=== PATIENT | male | born 1970 | race Caucasian/White ===

== ENCOUNTER 2019-03-23 09:42 | Emergency (ER) | payer OTHER, SELFPAY ==
[2019-03-23 09:44] VITALS: BP 123/88; PULSE 69; RESP 17; TEMP 37.6; O2SAT 95; BMI 28.7
--- NOTE | 2019-03-23 09:53 | CT_ITS ---
STUDY: CT SOFT TISSUE NECK WITH CONTRAST REASON FOR EXAM: Male, 48 years old. PT STATED RT SIDE LUMP ON NECK X 3 MONTHS. RADIATION DOSAGE (If Supplied By Facility): CTDIvol = ( 19.37 ) mGy, DLP = ( 604.59 ) mGycm TECHNIQUE: The patient was scanned in a multi-detector CT scanner. High resolution transaxial imaging was performed following intravenous administration of IV 75mL Isovue-300. Sagittal and coronal images were reconstructed. Individualized dose optimization techniques were used for this CT. COMPARISON: None. FINDINGS: Normal bilateral parotid glands. Normal bilateral middle stitcher spaces. Normal bilateral parapharyngeal spaces. Normal bilateral carotid spaces. Normal bilateral sublingual and submandibular glands and spaces. Normal visualized nasopharynx. Normal retropharyngeal space. Normal perivertebral space. Normal visualized bilateral faucial tonsils. The visualized tongue, tongue base and oropharynx are normal. The visualized cervical lymph nodes (levels I-) are within normal size limits, and maintain normal morphology. There is no demonstrated solid or cystic mass lesion. There is no abnormal contrast enhancement. Normal epiglottis, bilateral vallecula and hypopharynx. The pre-epiglottic and paraglottic adipose spaces are normal. Normal visualized bilateral piriform sinuses, aryepiglottic folds, vocal cords, and arytenoid-cricoid articulations. Normal subglottic trachea. Normal bilateral lobes of the thyroid gland. Normal visualized pulmonary apices. Normal visualized paranasal sinuses. Disc space narrowing and spondylosis at the C5-C6 and C6-C7 levels. CT/Soft Tissue Neck WITH Contrast IMPRESSION: Normal enhanced CT examination of the soft tissues of the neck. Electronically Signed: Vick Ashley, at 11:07 EST , Service support ,
--- NOTE | 2019-03-23 09:54 | ED.DCSUM_ITS ---
History of Present Illness Chief Complaint: Abscess Detail of Chief Complaint: Lump on right neck Informant: Patient, Significant Other Onset: Month(s) Context: Gradual Onset Current Severity: Moderate Maximum Severity: Moderate Narrative: Patient presents with a painful lump to the right side of his neck for approximately last 3 months. He states he first noticed it when he was being treated for a sinus infection. It has not changed in size. Continue to be painful. He is currently in his second round of antibiotics for sinusitis. He denies having fever or night sweats. He denies having any other masses or palpable lumps. - Past Medical History (1) HTN (hypertension) Status: Chronic (2) Hx of prior ablation treatment Status: Chronic Past Medical History - Allergies and Home Meds Allergies/Adverse Reactions: Allergies No Known Allergies Allergy (Verified 03/23/19 09:43) Primary Care Physician: Ranjeet Lainez,Out of [NON-STAFF] - Prior records reviewed: Yes Surgical History: ablation Lives: Spouse/ Significant Other Smoking Status: Never smoker Review of Systems General: Denies: Chills, Fever Eyes: Denies: Visual changes - bilaterally ENT: Reports: -. Denies: Bilateral ear pain Cardiovascular: Denies: Chest pain Respiratory: Denies: Dyspnea, Cough Gastrointestinal: Denies: Abdominal pain, Vomiting, Diarrhea Musculoskeletal: Denies: Myalgias, Arthralgias Skin: Denies: Rash Neurological: Denies: Headache Hematologic: Denies: Easy bruising, Easy bleeding Allergy: Denies: Uticaria Physical Exam Vital Signs/Narrative: Vital Signs Temp Pulse Resp BP Pulse Ox 03/23/19 09:44 99.6 F H 69 17 123/88 H 95 Inital Vital Signs reviewed: Yes General: Well nourished, Well developed Head: Normocephalic ENT: Moist mucous membranes Neck: Supple, - - Mild tenderness along the sternocleidomastoid muscle on the right. Small palpable lump noted. No overlying erythema or skin warmth. No significant edema. Cardiovascular: Regular rate, Regular rhythm Respiratory: No distress, CTA bilaterally Abdomen: Soft, Nontender Skin: Normal color Neurological: Alert, Oriented x3 Psychological: Normal affect Diagnostic/Tx/Re-eval Impressions Soft Tissue Neck CT 03/23/19 09:53 IMPRESSION: Normal enhanced CT examination of the soft tissues of the neck. Electronically Signed: Vick Ashley, at 11:07 EST , Service support , 03/23/19 09:53 CT Neck [Soft Tissue Neck WITH Contrast] [CT] Stat Laboratory Results 03/23/19 03/23/19 10:05 10:05 WBC 5.6 RBC 4.93 Hgb 15.3 Hct 45.8 MCV 92.9 MCH 31.0 MCHC 33.4 RDW Std Deviation 43.0 RDW Coeff of Evaristo 12.5 Plt Count 237 MPV 8.4 Immature Gran % (Auto) 0.400 Neut % (Auto) 50.3 Lymph % (Auto) 33.1 [place] % (Auto) 8.9 Eos % (Auto) 6.8 H Baso % (Auto) 0.5 Absolute Neuts (auto) 2.8 Absolute Lymphs (auto) 1.85 Nucleated RBC % 0 Sodium 136 Potassium 4.4 Chloride 103 Carbon Dioxide 28.0 Anion Gap 5 BUN 16 Creatinine 1.26 Estim Creat Clear Calc 76.36 Est GFR (MDRD) Af Amer 78 Est GFR (MDRD) Non-Af 65 BUN/Creatinine Ratio 12.7 Glucose 110 H Calcium 9.6 TSH 1.44 - Medical Decision Making Results are discussed with patient and at bedside. At this time no acute abnormalities are noted. He will continue the antibiotic he is currently on. He will be referred to ENT for further follow-up as needed. ED Disposition - Plan for ED Patient: Disposition: Home or Assisted Living Diagnosis: Lymphadenopathy Referrals: [facility] Doctor,Out of [NON-STAFF] - Douglas Palencia MD [STAFF PHYSICIAN] - As Needed Additional Instructions: Your bloodwork today was unremarkable. Your CT scan revealed the lymph nodes to be of normal size with no suspicious masses. Continue your current antibiotic and follow up with ENT as needed.
[2019-03-23 10:11] LABS: Absolute Lymphocyte Count 1.85 X10^3/uL (0.83-4.51); Absolute Neutrophil Count 2.8 X10^3/uL (2.0-7.7); Basophil# 0.03 X10^3/uL; Basophil% 0.5 % (0-1); Eosinophil# 0.38 X10^3/uL; Eosinophils% 6.8 % (0-5); Hematocrit 45.8 % (40-54); Hemoglobin 15.3 g/dL (13.0-16.5); Lymphocyte # 1.85 X10^3/ul (4.0); Lymphocyte % 33.1 % (19-41); Mean Corp Hgb Conc 33.4 g/dL (32-36); Mean Corpuscular Volume 92.9 fL (80-94); Mean Platelet Vol. 8.4 fl (6.2-12.0); Monocyte% 8.9 % (0-10); NRBC Flagged by Analyzer 0 % (0-5); Neutrophil # 2.81 X10^3/uL (2.7-7.7); Neutrophil % 50.3 % (47-70); Platelet Count 237 K/mm3 (150-450); RBC Distribution Width CV 12.5 % (11.6-14.6); Red Blood Count 4.93 M/mm3 (4.6-6.2); White Blood Count 5.6 K/mm3 (4.4-11.0)
[2019-03-23 10:39] LABS: Anion Gap 5 (5-15); BUN 16 mg/dL (7-18); BUN/Creat Ratio 12.7 RATIO (10-20); Calcium,Total 9.6 mg/dL (8.5-10.1); Chloride 103 mmol/L (98-107); Creatinine, Serum 1.26 mg/dL (0.70-1.30); EST Glomerular Filtration Rate 65 mL/min (>60); Est Glom Filt Rate - Afr Amer 78 mL/min (>60); Estimated Creatinine Clearance 76.36 ml/min; Glucose 110 mg/dL (74-106); Potassium 4.4 mmol/L (3.5-5.1); Sodium Level 136 mmol/L (136-145); Thyroid Stim Hormone (TSH) 1.44 uIU/mL (0.358-3.74)
== END 2019-03-23 11:41 | disposition home or self-care (01) ==
PROVIDERS: Emergency Provider Emergency Medicine
DX: R59.0 Localized enlarged lymph nodes (principal); I10 Essential (primary) hypertension
CPT/HCPCS: 70491; 80048; 84443; 85025; 99283; Q9967; A4216

== ENCOUNTER 2021-03-24 09:57 | Emergency (ER) | payer OTHER, SELFPAY ==
[2021-03-24 09:57] VITALS: BP 167/93; PULSE 72; RESP 16; TEMP 37.3; O2SAT 97; BMI 27.9
[2021-03-24 10:17] VITALS: BP 159/93; PULSE 69; PULSE 74; RESP 18; TEMP 37.3; O2SAT 92; O2SAT 94; O2SAT 95
--- NOTE | 2021-03-24 10:25 | CT_ITS ---
STUDY: CTA CHEST REASON FOR EXAM: Male, 50 years old. covid 19 pulmonary embolism RADIATION DOSAGE (If Supplied By Facility): CTDIvol = ( 11.79 ) mGy, DLP = ( 518.92 ) mGycm TECHNIQUE: The examination was performed with the intravenous administration of IV 100mL Isovue-370. Post-processing of the angiographic images was performed, with multiplanar reformation and 3D reconstruction. Individualized dose optimization techniques were used for this CT. COMPARISON: None. FINDINGS: Normal enhancement of the main pulmonary artery and right and left pulmonary arteries. Normal enhancement of the bilateral peripheral pulmonary arteries. There is no demonstrated pulmonary embolism. Normal thoracic aorta and visualized great vessels. There is no demonstrated aortic dissection. There are calcifications of the coronary arteries. There are visualized mediastinal lymph nodes, which are within normal size limits, and with normal morphology. Normal hilar regions. Normal visualized trachea and bronchi. The lungs are well expanded. Patchy focal pulmonary infiltrates involving both upper and lower lobes in a preferential peripheral distribution. Findings are suggestive of Covid pneumonitis. Normal pleura. Normal chest wall structures. Normal osseous structures. Normal visualized upper abdomen. CT/CTA Chest W/WO Contrast IMPRESSION: Multiple pulmonary infiltrates in the preferential peripheral distribution suggestive of a pneumonitis associated with Covid. Electronically Signed: Vick Ashley MD at 11:46 EST , Service support ,
--- NOTE | 2021-03-24 10:26 | EKG12_ITS ---
Test Reason : SOB Blood Pressure : / mmHG Vent. Rate : 061 BPM Atrial Rate : 061 BPM P-R Int : 154 ms QRS Dur : 088 ms QT Int : 384 ms P-R-T Axes : 017 008 019 degrees QTc Int : 386 ms Normal sinus rhythm Normal ECG Confirmed by AMINAH YU, GLENN ([id number]), social media editor KINZA TRUONG ([id number]) on 03/25/2021 9:55:44 AM Referred By: Confirmed By:GLENN BURR MD
--- NOTE | 2021-03-24 10:26 | ED.VIS.DYS ---
HPI History of Present Illness Chief Complaint: Shortness of Breath Informant: patient and spouse/S.O. Narrative Narrative: 50-year-old male arriving to the emergency room on day 14 of COVID-19 with chest pain. Patient states that he has been recovering from COVID-19 but the thing that keeps persisting is his cough and when he goes to take a deep breath now he notes a sharp pain on the left side of his chest. He notes fevers diarrhea have resolved. Cough is nonproductive. No prior history of DVT PE. PFSH PFS Medical History (Updated 03/24/21 @ 12:[address] Stephen Tobar DO) COVID-19 HTN (hypertension) Home Medications dexamethasone 6 mg PO DAILY #7 tab 03/24/21 [Rx Last Taken Unknown] Allergy/AdvReac Type Severity Reaction Status Date / Time No Known Allergies Allergy Verified 03/24/21 10:00 Surgical History Hx of prior ablation treatment Social History (Updated 03/24/21 @ 10:[address] Stephen Tobar DO) Smoking Status: Never smoker substance use type: does not use ROS ROS ED Constitutional Constitutional ED: Denies chills, fever(s) or weight loss Eyes Eyes: Denies change in vision or diplopia ENT ENT ED: Denies ear pain, rhinorrhea or sore throat Cardiovascular Cardiovascular: Reports chest pain; Denies orthopnea, palpitations or racing heartbeat Respiratory/Chest Respiratory/Chest: Reports cough; Denies dyspnea, dyspnea on exertion or orthopnea Gastrointestinal Gastrointestinal: Denies abdominal pain, diarrhea, nausea or vomiting Genitourinary Genitourinary ED: Denies dysuria, hematuria or urinary frequency Musculoskeletal Musculoskeletal: Denies arthralgias or myalgias Integumentary Denies abscess or rash Neurologic Neurologic: Denies headache(s) or weakness Psychiatric Psychiatric: Denies anxiety, depression, suicidal ideation or suicidal thoughts Endocrine Endocrinology: Denies polydipsia, polyphagia or polyuria Allergic/Immunologic Allergic/Immunologic ED: Denies mouth swelling, tongue swelling or urticaria EXAM Physical Exam Const Vital Signs: 03/24/21 09:57 03/24/21 10:17 03/24/21 12:00 Temperature 99.1 F 99.1 F 99.2 F H Temperature Source Oral Oral Temporal Pulse Rate 72 74 60 Respiratory Rate 16 18 20 H Respiratory Effort Normal Respiratory Depth Normal Blood Pressure 167/93 H 159/93 H 126/80 H Blood Pressure Mean 117 115 95 Pulse Ox 97 95 93 Oxygen Delivery Method Room Air Room Air Room Air 03/24/21 12:22 Temperature Temperature Source Pulse Rate 56 L Respiratory Rate 19 H Respiratory Effort Respiratory Depth Blood Pressure 131/73 H Blood Pressure Mean Pulse Ox 93 Oxygen Delivery Method Positive well nourished and well developed General Appearance ED: well developed HEENT Reports normocephalic, head/scalp atraumatic, TM's clear and moist mucous membranes atraumatic Tympanic Membrane ED: Yes TM's clear Eyes PERRL and EOMs intact bilaterally Neck no lymphadenopathy, supple and no JVD Resp normal respiratory effort and clear to auscultation bilaterally Cardio regular rate, regular rhythm and no murmurs GI normal to inspection, nondistended, normoactive bowel sounds and non-tender Palpation: soft Back/Spine no CVA tenderness and normal ROM Extremity normal to inspection General Extremety ED: Negative for edema General Extremity: Negative for edema Neuro oriented x3 and CN's II-XII intact bilaterally Sensorium / Orientation: alert Motor Exam: strength 5/5 throughout Psych mental status grossly normal Mood & Affect: Negative for depressed or tearful Skin no rashes or lesions noted and no wounds MDM MDM MDM Narrative Medical decision making narrative: Basic blood work was reassuring and showed a troponin level of 4. CTA of the chest demonstrates diffuse pneumonitis but no pulmonary embolism. I will write for some Decadron as the patient took some prednisone which did actually help his symptoms. Patient return if worsening or concerns Lab Data Attestation: I reviewed the patient's lab results. Labs: Laboratory Results - last 24 hr 03/24/21 03/24/21 10:30 10:30 WBC 6.4 RBC 4.71 Hgb 14.5 Hct 42.0 MCV 89.2 MCH 30.8 MCHC 34.5 RDW Std Deviation 39.5 RDW Coeff of Evaristo 12.0 Plt Count 274 MPV 8.9 Immature Gran % (Auto) 0.600 Neut % (Auto) 65.8 Lymph % (Auto) 22.7 [place] % (Auto) 10.4 H Eos % (Auto) 0.3 Baso % (Auto) 0.2 Absolute Neuts (auto) 4.2 Absolute Lymphs (auto) 1.46 Nucleated RBC % 0 Sodium 137 Potassium 3.7 Chloride 102 Carbon Dioxide 27.0 Anion Gap 8 BUN 11 Creatinine 1.06 Estim Creat Clear Calc 86.08 Est GFR (MDRD) Af Amer 95 Est GFR (MDRD) Non-Af 78 BUN/Creatinine Ratio 10.4 Glucose 161 H Calcium 9.4 Total Bilirubin 0.30 AST 23 ALT 34 Alkaline Phosphatase 65 Troponin I High Sens 4 Total Protein 7.9 Albumin 3.4 Globulin 4.5 H Albumin/Globulin Ratio 0.8 L Radiography Diagnostic Testing: Clinical Impression(s) from Imaging Studies Chest CTA 03/24/21 10:25 IMPRESSION: Multiple pulmonary infiltrates in the preferential peripheral distribution suggestive of a pneumonitis associated with Covid. Electronically Signed: Vick Ashley MD at 11:46 EST , Service support , EKG Initial EKG: Attestation: I personally reviewed and interpreted this EKG as follows: Comments: Normal sinus rhythm with a ventricular rate of 61 bpm Discharge Plan Triage Chief Complaint: Shortness of Breath ED Provider: Stephen Tobar Dx/Rx/DC Orders Clinical Impression: COVID-19, Chest pain Instructions: Coronavirus Disease 2019 (COVID-19): Caring for Yourself or Others, ED Pleurisy Prescriptions: New dexamethasone 6 MG tablet 6 mg PO DAILY Qty: 7 RF: 0 Primary Care Provider: Carol Washburn Referrals: Carol Washburn MD [Primary Care Provider] - As Needed Disposition Disposition: Home, Self Care
[2021-03-24 10:50] LABS: Absolute Lymphocyte Count 1.46 X10^3/uL (0.83-4.51); Absolute Neutrophil Count 4.2 X10^3/uL (2.0-7.7); Basophil# 0.01 X10^3/uL; Basophil% 0.2 % (0-1); Eosinophil# 0.02 X10^3/uL; Eosinophils% 0.3 % (0-5); Hemoglobin 14.5 g/dL (13.0-16.5); Lymphocyte # 1.46 X10^3/ul (0.83-4.51); Lymphocyte % 22.7 % (19-41); Mean Corp Hgb Conc 34.5 g/dL (32-36); Mean Corpuscular Hgb 30.8 pg (27.0-32.0); Mean Corpuscular Volume 89.2 fL (80-94); Mean Platelet Vol. 8.9 fl (6.2-12.0); Monocyte# 0.67 X10^3/uL; Monocyte% 10.4 % (0-10); NRBC Flagged by Analyzer 0 % (0-5); Neutrophil # 4.24 X10^3/uL (2.7-7.7); Neutrophil % 65.8 % (47-70); Platelet Count 274 K/mm3 (150-450); RBC Distribution Width SD 39.5 fl (35.1-43.9); Red Blood Count 4.71 M/mm3 (4.6-6.2); White Blood Count 6.4 K/mm3 (4.4-11.0)
[2021-03-24 11:03] LABS: ALB/GLOB Ratio 0.8 RATIO (0.9-2.4); AST(SGOT) 23 U/L (15-37); Alanine Aminotransfer ALT/SGPT 34 U/L (16-61); Albumin, Serum 3.4 g/dL (3.2-5.0); Alkaline Phosphatase 65 U/L (45-117); Anion Gap 8 (5-15); BUN 11 mg/dL (7-18); BUN/Creat Ratio 10.4 RATIO (10-20); Calcium,Total 9.4 mg/dL (8.5-10.1); Chloride 102 mmol/L (98-107); Creatinine, Serum 1.06 mg/dL (0.70-1.30); EST Glomerular Filtration Rate 78 mL/min (>60); Est Glom Filt Rate - Afr Amer 95 mL/min (>60); Estimated Creatinine Clearance 86.08 ml/min; Globulin 4.5 g/dL (2.2-4.2); Glucose 161 mg/dL (74-106); Potassium 3.7 mmol/L (3.5-5.1); Protein, Total 7.9 g/dL (6.4-8.2); Sodium Level 137 mmol/L (136-145); Troponin-I HS 4 pg/mL (3.0-78.0)
[2021-03-24 12:00] VITALS: BP 126/80; PULSE 60; RESP 19; RESP 20; TEMP 37.3; O2SAT 93; O2SAT 94
[2021-03-24 12:22] VITALS: BP 131/73; PULSE 56; RESP 19; O2SAT 93
== END 2021-03-24 12:35 | disposition home or self-care (01) ==
PROVIDERS: Emergency Provider Emergency Medicine; PCP Internal Medicine; Visit Provider Emergency Medicine
DX: U07.1 COVID-19 (principal); R07.9 Chest pain, unspecified
CPT/HCPCS: 71275; 80053; 84484; 85025; 93005; 99283; Q9967; A4216

== ENCOUNTER 2021-03-31 07:01 | Emergency (ER) | payer OTHER, SELFPAY ==
[2021-03-31 07:02] VITALS: BP 149/93; PULSE 69; RESP 18; TEMP 36.4; O2SAT 97; BMI 28.7
--- NOTE | 2021-03-31 07:17 | CT_ITS ---
STUDY: CT SOFT TISSUE NECK WITH CONTRAST REASON FOR EXAM: Male, 51 years old. Dysphagia RADIATION DOSAGE (If Supplied By Facility): CTDIvol = ( 16.72 ) mGy, DLP = ( 526.32 ) mGycm TECHNIQUE: The patient was scanned in a multi-detector CT scanner. High resolution transaxial imaging was performed following intravenous administration of IV 75mL Isovue-300. Sagittal and coronal images were reconstructed. Individualized dose optimization techniques were used for this CT. COMPARISON: CT of the neck dated 03/23/19 FINDINGS: There are mild patchy groundglass opacities in the lung apices. This is improved when compared with the chest CT dated 03/24/21 The thyroid is normal in contour and density. There are no focal thyroid lesions. There is no cervical lymphadenopathy. There is no soft tissue mass or fluid collection. The bilateral parotid and submandibular glands are within normal limits. The visualized intracranial structures are grossly unremarkable. The mastoid air cells and visualized paranasal sinuses are clear. There are no destructive osseous lesions. CT/Soft Tissue Neck WITH Contrast IMPRESSION: Mild patchy groundglass opacities in the lung apices which are improved when compared with the chest CT dated 03/24/21. Unremarkable CT of the soft tissues of the neck. Electronically Signed: Ron Aponte MD at 8:34 EST ,
--- NOTE | 2021-03-31 07:18 | EX.ED.DYSGE1 ---
HPI History of Present Illness Chief Complaint: General Illness Informant: patient Narrative Narrative: 51-year-old male presenting to the emergency department with a lump in his throat. Patient states that he has had this before and about [address] scan. He states that he followed up with an ENT who told him there was nothing to be concerned about. He states that while he was on dexamethasone for Covid it had improved but since stopping it it is coming back more. He notes it is affecting his swallowing. He notes most things taste bland and he does have dry mouth. He is a non-smoker does not use much alcohol. No fevers. No hemoptysis. PFSH PFS Medical History COVID-19 HTN (hypertension) Home Medications NK 03/31/21 [History Last Taken Unknown] Allergy/AdvReac Type Severity Reaction Status Date / Time No Known Allergies Allergy Verified 03/31/21 07:04 Surgical History Hx of prior ablation treatment Social History Smoking Status: Never smoker substance use type: does not use ROS ROS ED Constitutional Constitutional ED: Denies chills or weight loss Eyes Eyes: Denies change in vision or diplopia ENT ENT ED: Reports other Details: Change in swallowing. lump in throat ; Denies ear pain, rhinorrhea or sore throat Cardiovascular Cardiovascular: Denies chest pain, orthopnea, palpitations or racing heartbeat Respiratory/Chest Respiratory/Chest: Denies cough, dyspnea or orthopnea Gastrointestinal Gastrointestinal: Denies abdominal pain, diarrhea, nausea or vomiting Genitourinary Genitourinary ED: Denies dysuria, hematuria or urinary frequency Musculoskeletal Musculoskeletal: Denies arthralgias or myalgias Integumentary Denies abscess or rash Neurologic Neurologic: Denies headache(s) or weakness Psychiatric Psychiatric: Denies anxiety, depression, suicidal ideation or suicidal thoughts Endocrine Endocrinology: Denies polydipsia, polyphagia or polyuria Allergic/Immunologic Allergic/Immunologic ED: Denies mouth swelling, tongue swelling or urticaria EXAM Physical Exam Const Vital Signs: 03/31/21 07:02 Temperature 97.5 F L Temperature Source Temporal Pulse Rate 69 Respiratory Rate 18 Blood Pressure 149/93 H Blood Pressure Mean 111 Pulse Ox 97 Oxygen Delivery Method Room Air Positive well nourished and well developed General Appearance ED: well developed HEENT Reports normocephalic, head/scalp atraumatic, TM's clear and moist mucous membranes HEENT Narrative: Visualized tongue lips and floor mouth appear normal. Normal oral mucosa. Negative for trauma Tympanic Membrane ED: Yes TM's clear Eyes PERRL and EOMs intact bilaterally Neck no lymphadenopathy, supple and no JVD Neck Narrative: The patient points to his sternocleidomastoid muscle near the insertion of the clavicle as where he is feeling this mass. I do not appreciate any pathologic nodes. There is no bruits. Normal carotid upstroke. Resp normal respiratory effort and clear to auscultation bilaterally Cardio regular rate, regular rhythm and no murmurs GI normal to inspection, nondistended, normoactive bowel sounds and non-tender Palpation: soft Back/Spine no CVA tenderness and normal ROM Extremity normal to inspection General Extremety ED: Negative for edema General Extremity: Negative for edema Neuro oriented x3 and CN's II-XII intact bilaterally Sensorium / Orientation: alert Motor Exam: strength 5/5 throughout Psych mental status grossly normal Mood & Affect: Negative for depressed or tearful Skin no rashes or lesions noted and no wounds MDM MDM MDM Narrative Medical decision making narrative: Basic blood work was negative glucose noted to be 130. CT of the soft tissues of the neck with IV contrast was obtained. This did not demonstrate anything that would explain what he is feeling. Patient has a follow-up appointment today with primary care I also recommended that he may want to visit with ENT again. He saw Dr. Palencia in the past. Lab Data Attestation: I reviewed the patient's lab results. Labs: Laboratory Results - last 24 hr 03/31/21 03/31/21 07:35 07:35 WBC 7.5 RBC 4.70 Hgb 14.3 Hct 41.2 MCV 87.7 MCH 30.4 MCHC 34.7 RDW Std Deviation 39.7 RDW Coeff of Evaristo 12.4 Plt Count 429 MPV 8.2 Immature Gran % (Auto) 2.700 H Neut % (Auto) 51.9 Lymph % (Auto) 32.4 [place] % (Auto) 10.2 H Eos % (Auto) 2.5 Baso % (Auto) 0.3 Absolute Neuts (auto) 3.9 Absolute Lymphs (auto) 2.42 Nucleated RBC % 0 Sodium 137 Potassium 3.9 Chloride 105 Carbon Dioxide 27.0 Anion Gap 5 BUN 16 Creatinine 1.04 Estim Creat Clear Calc 86.77 Est GFR (MDRD) Af Amer 97 Est GFR (MDRD) Non-Af 80 BUN/Creatinine Ratio 15.4 Glucose 130 H Calcium 8.8 Total Bilirubin 0.40 AST 18 ALT 50 Alkaline Phosphatase 63 Total Protein 7.2 Albumin 3.3 Globulin 3.9 Albumin/Globulin Ratio 0.8 L Radiography Diagnostic Testing: Clinical Impression(s) from Imaging Studies Soft Tissue Neck CT 03/31/21 07:17 IMPRESSION: Mild patchy groundglass opacities in the lung apices which are improved when compared with the chest CT dated 03/24/21. Unremarkable CT of the soft tissues of the neck. Electronically Signed: Ron Aponte MD at 8:34 EST , Discharge Plan Triage Chief Complaint: General Illness ED Provider: Stephen Tobar Dx/Rx/DC Orders Clinical Impression: Acute neck pain Prescriptions: No Action NK RF: 0 Primary Care Provider: Carol Washburn Referrals: Dung Ibarra MD [STAFF PHYSICIAN] - (for ENT) Douglas Palencia MD [STAFF PHYSICIAN] - Carol Washburn MD [Primary Care Provider] - As soon as possible Disposition Disposition: Home, Self Care
[2021-03-31 07:44] LABS: Absolute Lymphocyte Count 2.42 X10^3/uL (0.83-4.51); Absolute Neutrophil Count 3.9 X10^3/uL (2.0-7.7); Basophil# 0.02 X10^3/uL; Basophil% 0.3 % (0-1); Eosinophil# 0.19 X10^3/uL; Eosinophils% 2.5 % (0-5); Hematocrit 41.2 % (40-54); Hemoglobin 14.3 g/dL (13.0-16.5); Lymphocyte # 2.42 X10^3/ul (0.83-4.51); Lymphocyte % 32.4 % (19-41); Mean Corp Hgb Conc 34.7 g/dL (32-36); Mean Corpuscular Hgb 30.4 pg (27.0-32.0); Mean Corpuscular Volume 87.7 fL (80-94); Mean Platelet Vol. 8.2 fl (6.2-12.0); Monocyte# 0.76 X10^3/uL; Monocyte% 10.2 % (0-10); NRBC Flagged by Analyzer 0 % (0-5); Neutrophil # 3.88 X10^3/uL (2.7-7.7); Neutrophil % 51.9 % (47-70); Platelet Count 429 K/mm3 (150-450); RBC Distribution Width CV 12.4 % (11.6-14.6); RBC Distribution Width SD 39.7 fl (35.1-43.9); White Blood Count 7.5 K/mm3 (4.4-11.0)
[2021-03-31 07:58] LABS: ALB/GLOB Ratio 0.8 RATIO (0.9-2.4); AST(SGOT) 18 U/L (15-37); Alanine Aminotransfer ALT/SGPT 50 U/L (16-61); Albumin, Serum 3.3 g/dL (3.2-5.0); Alkaline Phosphatase 63 U/L (45-117); Anion Gap 5 (5-15); BUN 16 mg/dL (7-18); BUN/Creat Ratio 15.4 RATIO (10-20); Calcium,Total 8.8 mg/dL (8.5-10.1); Chloride 105 mmol/L (98-107); Creatinine, Serum 1.04 mg/dL (0.70-1.30); EST Glomerular Filtration Rate 80 mL/min (>60); Est Glom Filt Rate - Afr Amer 97 mL/min (>60); Estimated Creatinine Clearance 86.77 ml/min; Globulin 3.9 g/dL (2.2-4.2); Glucose 130 mg/dL (74-106); Potassium 3.9 mmol/L (3.5-5.1); Protein, Total 7.2 g/dL (6.4-8.2); Sodium Level 137 mmol/L (136-145)
== END 2021-03-31 09:33 | disposition home or self-care (01) ==
PROVIDERS: Emergency Provider Emergency Medicine; PCP Internal Medicine; Visit Provider Emergency Medicine
DX: M54.2 Cervicalgia (principal); Z86.16 Personal history of COVID-19
CPT/HCPCS: 70491; 80053; 85025; 99283; Q9967; A4216

== ENCOUNTER 2021-05-01 17:13 | Outpatient (CLI) | payer OTHER, SELFPAY ==
--- NOTE | 2021-05-01 17:42 | CT_ITS ---
STUDY: CT Abdomen And Pelvis W/ Contrast Injection 05/01/2021 8:14 PM REASON FOR EXAM: Male, 51 years old. ABDOMINAL PAIN Right lower abdominal pain/fullness TECHNIQUE: Transaxial images were obtained with oral contrast, and with Oral and amp; IV Gastrografin 100mL Isovue-370 intravenous contrast. Individualized dose optimization techniques were used for this CT. COMPARISON: Mar 24 2021 11:17amCTA Chest FINDINGS: The visualized lung bases are unremarkable. The visualized portions of the heart are within normal limits. 12 mm hypodensity of the liver. This is 37 [place] units. ACR White Paper guidelines (Edmond, et al. JACR 2017; 14(11):7013-3640.) suggest no follow-up is necessary. Normal gallbladder and extrahepatic biliary system. Normal spleen. Normal pancreas. Normal bilateral adrenal glands. No acute findings of the right kidney. No acute findings of the left kidney. Normal visualized stomach. Normal small intestine. Stool throughout the colon. The appendix is visualized and appears normal. There are no acute findings of the abdominal aorta. Normal inferior vena cava. Subcentimeter mesenteric lymph nodes. Normal urinary bladder. There is a right inguinal hernia containing fat. There is no bowel involvement. There is no incarceration. There is no findings suggesting that this is causing a bowel obstruction. There is an umbilical hernia containing fat. There are diffuse degenerative changes of the visualized lumbar spine. IMPRESSION: (NOT LISTED IN ORDER OF SIGNIFICANCE) There are no acute findings. Other findings as above. Electronically Signed: Kwame Carreno MD at 20:17 EST , CT/Abdomen/Pelvis WITH Contrast
[2021-05-01 17:44] LABS: Absolute Lymphocyte Count 2.38 X10^3/uL (0.83-4.51); Basophil# 0.03 X10^3/uL; Basophil% 0.5 % (0-1); Eosinophil# 0.36 X10^3/uL; Eosinophils% 5.6 % (0-5); Hemoglobin 14.4 g/dL (13.0-16.5); Lymphocyte # 2.38 X10^3/ul (0.83-4.51); Mean Corp Hgb Conc 34.3 g/dL (32-36); Mean Corpuscular Hgb 31.6 pg (27.0-32.0); Mean Corpuscular Volume 92.1 fL (80-94); Mean Platelet Vol. 8.5 fl (6.2-12.0); Monocyte# 0.65 X10^3/uL; Monocyte% 10.1 % (0-10); NRBC Flagged by Analyzer 0 % (0-5); Neutrophil % 46.5 % (47-70); Platelet Count 295 K/mm3 (150-450); RBC Distribution Width CV 13.4 % (11.6-14.6); RBC Distribution Width SD 45.3 fl (35.1-43.9); Red Blood Count 4.56 M/mm3 (4.6-6.2); White Blood Count 6.4 K/mm3 (4.4-11.0)
[2021-05-01 17:52] LABS: Erythrocyte Sedimentation Rate 2 mm/hr (0-20)
[2021-05-01 18:32] LABS: ALB/GLOB Ratio 1.2 RATIO (0.9-2.4); AST(SGOT) 25 U/L (15-37); Alanine Aminotransfer ALT/SGPT 59 U/L (16-61); Albumin, Serum 4.1 g/dL (3.2-5.0); Alkaline Phosphatase 66 U/L (45-117); Anion Gap 2 (5-15); BUN 16 mg/dL (7-18); BUN/Creat Ratio 13.9 RATIO (10-20); CRP < 2.90 mg/L (0.0-3.0); Calcium,Total 9.7 mg/dL (8.5-10.1); Chloride 106 mmol/L (98-107); Creatinine, Serum 1.15 mg/dL (0.70-1.30); EST Glomerular Filtration Rate 71 mL/min (>60); Est Glom Filt Rate - Afr Amer 86 mL/min (>60); Globulin 3.5 g/dL (2.2-4.2); Glucose 113 mg/dL (74-106); Potassium 4.2 mmol/L (3.5-5.1); Protein, Total 7.6 g/dL (6.4-8.2); Sodium Level 139 mmol/L (136-145)
== END 2021-05-01 23:59 | disposition home or self-care (01) ==
PROVIDERS: PCP Internal Medicine; Visit Provider Internal Medicine
DX: R10.31 Right lower quadrant pain (principal)
CPT/HCPCS: 36415; 74177; 80053; 85025; 85652; 86140; Q9967

== ENCOUNTER → 2021-08-26 | Outpatient (CLI) | payer OTHER, SELFPAY ==
[2021-08-26 12:20] LABS: Absolute Lymphocyte Count 1.91 X10^3/uL (0.83-4.51); Basophil# 0.01 X10^3/uL; Basophil% 0.2 % (0-1); Eosinophil# 0.33 X10^3/uL; Eosinophils% 7.1 % (0-5); Hematocrit 45.3 % (40-54); Lymphocyte # 1.91 X10^3/ul (0.83-4.51); Lymphocyte % 40.8 % (19-41); Mean Corp Hgb Conc 33.1 g/dL (32-36); Mean Corpuscular Hgb 30.7 pg (27.0-32.0); Mean Corpuscular Volume 92.6 fL (80-94); Mean Platelet Vol. 9.2 fl (6.2-12.0); Monocyte# 0.39 X10^3/uL; Monocyte% 8.3 % (0-10); NRBC Flagged by Analyzer 0 % (0-5); Neutrophil # 2.03 X10^3/uL (2.7-7.7); Neutrophil % 43.4 % (47-70); Platelet Count 253 K/mm3 (150-450); RBC Distribution Width CV 12.4 % (11.6-14.6); RBC Distribution Width SD 42.4 fl (35.1-43.9); Red Blood Count 4.89 M/mm3 (4.6-6.2); White Blood Count 4.7 K/mm3 (4.4-11.0)
[2021-08-26 12:44] LABS: ALB/GLOB Ratio 1.1 RATIO (0.9-2.4); AST(SGOT) 20 U/L (15-37); Alanine Aminotransfer ALT/SGPT 28 U/L (16-61); Alkaline Phosphatase 66 U/L (45-117); Anion Gap 6 (5-15); BUN 11 mg/dL (7-18); BUN/Creat Ratio 10.6 RATIO (10-20); Calcium,Total 9.8 mg/dL (8.5-10.1); Chloride 105 mmol/L (98-107); Creatinine, Serum 1.04 mg/dL (0.70-1.30); EST Glomerular Filtration Rate 80 mL/min (>60); Est Glom Filt Rate - Afr Amer 97 mL/min (>60); Globulin 3.5 g/dL (2.2-4.2); Glucose 129 mg/dL (74-106); Potassium 4.7 mmol/L (3.5-5.1); Protein, Total 7.5 g/dL (6.4-8.2); Sodium Level 139 mmol/L (136-145)
== END | disposition home or self-care (01) ==
LOC: BIMLAB 10:36
PROVIDERS: PCP Internal Medicine; Referring Provider Internal Medicine; Visit Provider Internal Medicine
DX: R41.0 Disorientation, unspecified (principal)
CPT/HCPCS: 36415; 80053; 85025

== ENCOUNTER → 2021-10-02 | Outpatient (CLI) | payer OTHER, SELFPAY ==
--- NOTE | 2021-10-02 12:13 | ECHOD_ITS ---
Reason For Study: Arrhythmia Procedure This was a 2D Doppler, Color Flow transthoracic echocardiogram. The exam was of adequate technical quality. Exam performed in department. Left Ventricle Normal LV size. Left ventricular systolic function is normal. The estimated ejection fraction is 55 %. The global longitudinal strain = -18 % (normal). No evidence for diastolic dysfunction. No regional wall motion abnormalities noted. Right Ventricle Normal RV size. Normal systolic function. Atria Normal left atrium. Normal right atrium. No doppler evidence for ASD. Mitral Valve There is no mitral annular calcification. Normal mitral valve. Trivial mitral valve insufficiency. Tricuspid Valve Normal tricuspid valve. Trivial tricuspid valve insufficiency. Right ventricular systolic pressure estimated to be 20 mmHg. Aortic Valve Trisinus/trileaflet aortic valve. Normal aortic valve. Pulmonic Valve The pulmonic valve is not well visualized. Great Vessels Normal sized aortic root. Pericardium/Pleural No pericardial effusion. MMode/2D Measurements & Calculations LVIDd: 5.0 cm IVSd: 1.1 cm Ao root diam: 3.0 cm LVIDs: 2.8 cm LVPWd: 1.1 cm RVDd: 3.9 cm FS: 44.1 % LAV(MOD-bp): 56.1 ml LVAd ap4: 32.6 cm2 LVAd ap2: 33.5 cm2 LAV(MOD-bp) Indexed: 26.8 ml/m2 LVLd ap4: 8.7 cm LVLd ap2: 8.6 cm LAV(MOD-sp2): 53.6 ml EDV(MOD-sp4): 102.4 ml EDV(MOD-sp2): 114.0 ml LAV(MOD-sp4): 55.3 ml EDV(sp4-el): 103.8 ml EDV(sp2-el): 111.3 ml LVAs ap4: 19.9 cm2 LVAs ap2: 20.7 cm2 LVLs ap4: 7.5 cm LVLs ap2: 7.7 cm ESV(MOD-sp4): 44.9 ml ESV(MOD-sp2): 46.8 ml ESV(sp4-el): 45.0 ml ESV(sp2-el): 47.1 ml EF(MOD-sp4): 56.2 % EF(MOD-sp2): 58.9 % EF(sp4-el): 56.6 % SV(MOD-sp4): 57.5 ml SV(MOD-sp2): 67.2 ml SV(sp4-el): 58.8 ml LA dimension(2D): 3.2 cm LA A4 area: 18.8 cm2 RA A4 area: 15.4 cm2 Time Measurements MV dec time: 0.21 sec Doppler Measurements & Calculations MV E max mitch: 71.1 cm/sec Lat Peak E' Mitch: 13.9 cm/sec Med Peak E' Mitch: 8.9 cm/sec MV A max mitch: 49.7 cm/sec E/E' lat: 5.1 E/E' med: 8.0 MV E/A: 1.4 MV dec slope: 357.8 cm/sec2 Ao V2 max: 141.8 cm/sec LV V1 max: 91.2 cm/sec Ao max P.0 mmHg LV V1 max P.3 mmHg Ao V2 mean: 100.3 cm/sec LV V1 mean P.8 mmHg Ao mean P.6 mmHg LV V1 mean: 62.5 cm/sec Ao V2 VTI: 30.1 cm LV V1 VTI: 23.6 cm PA V2 max: 122.6 cm/sec TR max mitch: 207.6 cm/sec PA V2 mean: 81.3 cm/sec TR max P.3 mmHg ECHO/Echo Complete Interpretation Summary Left ventricular systolic function is normal. The estimated ejection fraction is 55 %. The global longitudinal strain = -18 % (normal). Trivial mitral valve insufficiency. Trivial tricuspid valve insufficiency. Right ventricular systolic pressure estimated to be 20 mmHg. No evidence for diastolic dysfunction. Ordering Physician: John Vásquez Referring Physician: Carol Washburn M.D. Performed By: Livier Pickering RDCS
--- NOTE | 2021-10-02 13:04 | STRESSREP ---
Stress Test Report Date: 10-02-2021 Procedure: Exercise tolerance test Indications: Palpitations; sinus node dysfunction Consent: Per the patient Procedure: The patient exercised on a Jarred protocol for 10 minutes completing Stage III and 1 minute of Stage IV achieving a peak heart rate of 164 bpm (97% predicted maximal heart rate) with a peak blood pressure 170/80 mmHg and a peak MET capacity of approximately 13 MET's. The baseline ECG demonstrated sinus bradycardia. The peak exercise ECG demonstrated somatic/motion artifact with beat to beat nonspecific ST segment variability. There was an isolated PVC near peak exercise. The functional capacity was considered good. The patient had no complaint of chest discomfort during exercise or recovery. The examination was discontinued secondary to dyspnea and the sensation of palpitations. Impression: 1. Technically adequate (percent predicted maximal heart rate greater than 85%) exercise tolerance test 2. Peak exercise ECG with somatic/motion artifact with beat to beat nonspecific ST segment variability 3. There was an isolated PVC near peak exercise 4. Heart rate response does not appear compatible with chronotropic incompetence This note was generated with [employer] software. It may contain incorrect words, spelling, and punctuation that were not noted in checking the note before signing.
== END | disposition home or self-care (01) ==
LOC: CVS 12:12
PROVIDERS: PCP Internal Medicine; Visit Provider Internal Medicine Cardiovascular Disease
DX: I10 Essential (primary) hypertension (principal); I47.2 Ventricular tachycardia; E78.2 Mixed hyperlipidemia; I49.3 Ventricular premature depolarization; R00.2 Palpitations
CPT/HCPCS: 93017; 93225; 93226; 93306

== ENCOUNTER → 2022-01-16 | Outpatient (CLI) | payer OTHER, SELFPAY ==
[2022-01-16 18:38] LABS: Magnesium 2.4 mg/dL (1.6-2.6); Thyroid Stim Hormone (TSH) 1.06 uIU/mL (0.358-3.74)
== END | disposition home or self-care (01) ==
LOC: LAB 15:48
PROVIDERS: PCP Internal Medicine; Visit Provider Physician Assistant Medical
DX: I47.20 Ventricular tachycardia, unspecified (principal)
CPT/HCPCS: 36415; 83735; 84443

== ENCOUNTER → 2022-05-01 | Outpatient (CLI) | payer OTHER, SELFPAY ==
[2022-05-01 16:29] LABS: Absolute Lymphocyte Count 2.28 X10^3/uL (0.83-4.51); Absolute Neutrophil Count 3.2 X10^3/uL (2.0-7.7); Basophil# 0.02 X10^3/uL; Basophil% 0.3 % (0-1); Eosinophil# 0.27 X10^3/uL; Eosinophils% 4.2 % (0-5); Hemoglobin 14.6 g/dL (13.0-16.5); Lymphocyte # 2.28 X10^3/ul (0.83-4.51); Lymphocyte % 35.1 % (19-41); Mean Corpuscular Hgb 30.8 pg (27.0-32.0); Mean Corpuscular Volume 90.7 fL (80-94); Mean Platelet Vol. 8.6 fl (6.2-12.0); Monocyte# 0.69 X10^3/uL; Monocyte% 10.6 % (0-10); NRBC Flagged by Analyzer 0 % (0-5); Neutrophil # 3.21 X10^3/uL (2.7-7.7); Neutrophil % 49.5 % (47-70); Platelet Count 261 K/mm3 (150-450); RBC Distribution Width CV 12.6 % (11.6-14.6); RBC Distribution Width SD 41.7 fl (35.1-43.9); Red Blood Count 4.74 M/mm3 (4.6-6.2); White Blood Count 6.5 K/mm3 (4.4-11.0)
[2022-05-01 17:18] LABS: BNP,B-Type NATRIURETIC PEPTIDE 6.3 pg/mL (0-100)
[2022-05-01 17:20] LABS: Anion Gap 8 (5-15); BUN 13 mg/dL (7-18); BUN/Creat Ratio 12.1 RATIO (10-20); Calcium,Total 9.5 mg/dL (8.5-10.1); Chloride 103 mmol/L (98-107); Creatinine, Serum 1.07 mg/dL (0.70-1.30); EST Glomerular Filtration Rate 77 mL/min (>60); Est Glom Filt Rate - Afr Amer 93 mL/min (>60); Glucose 99 mg/dL (74-106); Magnesium 2.5 mg/dL (1.6-2.6); Sodium Level 140 mmol/L (136-145); T4 Free Direct 1.01 ng/dL (0.76-1.46); Thyroid Stim Hormone (TSH) 1.57 uIU/mL (0.358-3.74)
== END | disposition home or self-care (01) ==
LOC: LAB 15:55
PROVIDERS: PCP Internal Medicine; Referring Provider Nurse Practitioner Family; Visit Provider Nurse Practitioner Family
DX: I49.3 Ventricular premature depolarization (principal); I47.20 Ventricular tachycardia, unspecified; R53.83 Other fatigue; I10 Essential (primary) hypertension; E78.2 Mixed hyperlipidemia; R00.2 Palpitations
CPT/HCPCS: 36415; 80048; 83735; 83880; 84439; 84443; 85025

== ENCOUNTER → 2022-09-14 | Outpatient (CLI) | payer OTHER, SELFPAY ==
[2022-09-14 16:29] LABS: Absolute Neutrophil Count 2.2 X10^3/uL (2.0-7.7); Basophil# 0.01 X10^3/uL; Basophil% 0.2 % (0-1); Eosinophils% 4.2 % (0-5); Hematocrit 41.4 % (40-54); Hemoglobin 13.8 g/dL (13.0-16.5); Mean Corp Hgb Conc 33.3 g/dL (32-36); Mean Platelet Vol. 9.2 fl (6.2-12.0); Monocyte# 0.46 X10^3/uL; Monocyte% 9.7 % (0-10); NRBC Flagged by Analyzer 0 % (0-5); Neutrophil # 2.17 X10^3/uL (2.7-7.7); Neutrophil % 45.7 % (47-70); Platelet Count 257 K/mm3 (150-450); RBC Distribution Width CV 12.3 % (11.6-14.6); RBC Distribution Width SD 42.5 fl (35.1-43.9); Red Blood Count 4.45 M/mm3 (4.6-6.2); White Blood Count 4.8 K/mm3 (4.4-11.0)
[2022-09-14 17:15] LABS: ALB/GLOB Ratio 1.1 RATIO (0.9-2.4); AST(SGOT) 22 U/L (15-37); Alanine Aminotransfer ALT/SGPT 34 U/L (16-61); Albumin, Serum 3.8 g/dL (3.2-5.0); Alkaline Phosphatase 67 U/L (45-117); Anion Gap 4 (5-15); BUN 10 mg/dL (7-18); Chloride 106 mmol/L (98-107); Cholesterol 229 mg/dL (200); EST Glomerular Filtration Rate 83 mL/min (>60); Est Glom Filt Rate - Afr Amer 101 mL/min (>60); Globulin 3.4 g/dL (2.2-4.2); Glucose 102 mg/dL (74-106); High Density Lipoprotein 49 mg/dL; PSA,Total - Annual Screen 0.73 ng/mL (0.00-4.00); Potassium 3.9 mmol/L (3.5-5.1); Protein, Total 7.2 g/dL (6.4-8.2); Sodium Level 138 mmol/L (136-145); Thyroid Stim Hormone (TSH) 1.24 uIU/mL (0.358-3.74); Triglycerides 159 mg/dL; Very Low Density Lipoprotein 32 mg/dL (5-40)
[2022-09-14 17:29] LABS: Hemoglobin A1c 6.6 % (3.8-5.6)
== END | disposition home or self-care (01) ==
LOC: LAB 14:53
PROVIDERS: PCP Internal Medicine; Referring Provider Internal Medicine; Visit Provider Internal Medicine
DX: R19.4 Change in bowel habit (principal); R14.0 Abdominal distension (gaseous); E55.9 Vitamin D deficiency, unspecified; Z12.5 Encounter for screening for malignant neoplasm of prostate; Z13.220 Encounter for screening for lipoid disorders
CPT/HCPCS: 36415; 80053; 80061; 82306; 83036; 84153; 84443; 85025; G0103

== ENCOUNTER → 2022-09-15 | Outpatient (CLI) | payer OTHER, SELFPAY | END | disposition home or self-care (01) | LOC: LABSPEC 11:18 | PROVIDERS: PCP Internal Medicine; Referring Provider Internal Medicine; Visit Provider Internal Medicine | DX: K58.9 Irritable bowel syndrome, unspecified (principal); R14.0 Abdominal distension (gaseous); R19.4 Change in bowel habit | CPT/HCPCS: 83630; 87177; 87209; 87329; 87493; 87506 ==

== ENCOUNTER → 2022-10-19 | Outpatient (CLI) | payer OTHER, SELFPAY ==
--- NOTE | 2022-10-19 08:40 | US_ITS ---
INDICATION: Abdominal bloating, loose bowel movements EXAMINATION: Ultrasound US Abdomen Limited (quadrant) TECHNIQUE: Pablo scale and color doppler imaging was performed of the right upper quadrant. COMPARISON: CT abdomen/pelvis from 05/01/2021 FINDINGS: Pancreas: The visualized head, and body are unremarkable. The tail is obscured by overlying bowel gas. Liver: 14.9 cm and within normal limits. Increased parenchymal echogenicity compatible with diffuse fatty infiltration. There is a 0.9 cm and adjacent 0.7 cm simple cyst in the right hepatic lobe. No intrahepatic bile duct dilation. Gallbladder: Normal size and appearance with no intraluminal sludge or gallstones. No significant wall thickening or pericholecystic fluid. Negative sonographic Salinas sign. Common bile duct: 3.9 mm and within normal limits. Right kidney: 13.3 x 5.4 x 5.7 cm. Normal size. The cortex measures 1.7 cm and is within normal limits. Normal parenchymal echogenicity. No nephrolithiasis or hydronephrosis. US/Gallbladder IMPRESSION: 1. No acute findings in the right upper quadrant. 2. Diffuse hepatic steatosis. Electronically Signed: Cortez Torre DO at 10:52 EDT ,
--- NOTE | 2022-10-19 09:46 | NM_ITS ---
CLINICAL: 52-year-old male with history of abdominal bloating. RADIONUCLIDE HEPATOBILIARY SCINTIGRAPHY COMPARISON: None available FINDINGS: Following the intravenous administration of 5.7 mCi of 99m Tc Mebrofenin, hepatobiliary images reveal: 1. Relatively prompt and homogeneous radiopharmaceutical concentration is noted by a normal sized liver. No parenchymal defects are identified. 2. Gallbladder activity is identified at 30 minutes post radiopharmaceutical administration. 3. Small intestinal tract is not visualized on the pre-CCK image acquisitions. Small bowel is defined following cholecystokinin infusion. 4. Washout of the radiopharmaceutical by the hepatic parenchyma appears qualitatively normal. Cholecystokinin (0.02 ug/kg) was administered intravenously over a 30-minute period. The post CCK gallbladder ejection fraction calculated at 20 minutes following Cholecystokinin administration was noted to be 79.0 % (normal greater than 35%). There is scintigraphic evidence of post CCK duodenal gastric reflux. NM/Hepatobilliary Img w/Pharm Int IMPRESSION: 1. A gallbladder ejection fraction calculated to be greater than 35% following the administration of Cholecystokinin makes the probability of functional hepatobiliary disease (gallbladder and/or sphincter of Oddi dyskinesia) and/or organic hepatobiliary disease (chronic acalculous cholecystitis and/or cystic duct syndrome) to be low. (Jennifer Landon et al, Journal of Nuclear Medicine 32:1695, 1991). 2. There is visualized post cholecystokinin duodenal gastric reflux as defined above. Electronically Signed: Thanh Rodriguez, at 23:10 EDT ,
== END | disposition home or self-care (01) ==
LOC: US 08:37
PROVIDERS: PCP Internal Medicine; Referring Provider Internal Medicine; Visit Provider Internal Medicine
DX: R14.0 Abdominal distension (gaseous) (principal); R19.4 Change in bowel habit
CPT/HCPCS: 76705; 78227; A9537; J2805

== ENCOUNTER 2022-11-10 08:23 | Day surgery (SDC) | payer OTHER, SELFPAY ==
--- NOTE | 2022-11-10 | GASB_PTH ---
PATIENT: ANDREAS BENSON LOC: EN U#:[id number] AGE/SX: 52/M ROOM: RE11/10/[address]: Dr. Yaya John MD : 1970 BED: DIS: 11/10/2022 SPEC #: [id number] RECD: 11/10/22 12:27 STATUS: GENA ANITHA #: [id number] ABILIO: 11/10/22 00:[address]: Yaya John DEPT: SURGICAL PATHOLOGY RECD BY: Jayy Du ENTERED: 11/10/22 12:28 SP TYPE: Gastric Bx OTHR DR: Dr. Carol Washburn MD Tissues: A - Duodenum, NOS B - Gastric mucous membrane C - Esophageal mucous membrane D - Ileum, NOS E - COLON BIOPSY F - Transverse colon Procedures: Special Stain Group II Surgery Specimen Level IV Alcian Blue/PAS (control) HEADER OPERATION: Colonoscopy, EGD, biopsy PRE-OP DIAGNOSIS: Abdominal bloating; frequent bowel movements; constipation TISSUE SUBMITTED: A - Duodenum biopsy, B - Antrum biopsy for histo and H. pylori, C - Distal esophagus biopsy, D - Terminal ileum biopsy, E - Random colonic biopsy, F - Proximal transverse polyp biopsy MICROSCOPIC DIAGNOSIS A. Duodenum, biopsy: No pathologic change. B. Gastric antrum, biopsy: Chronic gastritis. See comment. C. Distal esophagus, biopsy: Gastroesophageal junctional mucosa with mild chronic inflammation. Changes of reflux. No evidence of goblet cell metaplasia. See comment. D. Terminal ileum, biopsy: No pathologic change. E. Colon, random biopsy: No pathologic change. F. Proximal transverse colon polyp, biopsy: Tubular adenoma. AM:seferino 11/11/2022 COMMENT B. The results of immunohistochemistry for Helicobacter pylori will be reported separately ([id number]). C. Alcian blue/PAS stain with matched control supports the above diagnosis. MICROSCOPIC DESCRIPTION Slides are reviewed. GROSS DESCRIPTION A - Received in fixative is one container labeled with the patient's name and designated duodenum biopsy. The specimen consists of one irregular fragment of light cárdenas soft tissue that measures 0.6 x 0.2 x 0.1 cm. The specimen is totally submitted in one cassette. B - Received in fixative is one container labeled with the patient's name and designated antrum biopsy. The specimen consists of one irregular fragment of light cárdenas soft tissue that measures 0.5 x 0.3 x 0.1 cm. The specimen is totally submitted in one cassette. C - Received in fixative is one container labeled with the patient's name and designated distal esophagus biopsy. The specimen consists of one irregular fragment of light cárdenas soft tissue that measures 0.3 x 0.3 x 0.1 cm. The specimen is totally submitted in one cassette. D - Received in fixative is one container labeled with the patient's name and designated terminal ileum biopsy. The specimen consists of one irregular fragment of light cárdenas soft tissue that measures 0.5 x 0.4 x 0.1 cm. The specimen is totally submitted in one cassette. E - Received in fixative is one container labeled with the patient's name and designated random colonic biopsy. The specimen consists of multiple irregular fragments of light cárdenas soft tissue that in aggregate measure 1.3 x 0.4 x 0.1 cm. The specimen is totally submitted in one cassette. F - Received in fixative is one container labeled with the patient's name and designated proximal transverse polyp biopsy. The specimen consists of one irregular fragment of light cárdenas soft tissue that measures 0.4 x 0.4 x 0.1 cm. The specimen is totally submitted in one cassette. / SJ:rg 11/10/2022 TC:3 CPT: 11895 x6, 79182
[2022-11-10 08:51] VITALS: BP 135/85; PULSE 48; RESP 17; TEMP 36.6; O2SAT 98; BMI 29.0
[2022-11-10] MEDS: Lactated Ringers 1,000 ML 15 ML IV (08:51)
--- NOTE | 2022-11-10 08:58 | HP.PCM_ITS ---
History and Physical Date of Admission: 11/10/22 Visit Reasons: ABDOMINAL BLOATING/LOOSE STOOLS Chief Complaint: pain in stomach with bloating and change in bowel habits Patient Relations Specialist Required: No Is patient in pain?: No Allergies Estxsun-EQM-DcS Reductase Inhibitor Adverse Reaction (Unknown, Verified 09/30/22 14:04) Intolerent Medications doxepin 50 mg capsule 50 mg PO QHS PRN 04/07/21 [History Confirmed 09/30/22] omega-3 fatty acids 1,000 mg capsule 1,000 mg PO DAILY 04/07/21 [History Confirmed 09/30/22] Nialor 1 tablet PO DAILY 09/18/21 [History Confirmed 09/30/22] metoprolol succinate 25 mg tablet,extended release 24 hr 12.5 mg (1/2 x 25 mg) PO DAILY PRN palpitatons #45 tabs 03/05/22 [Rx Confirmed 09/30/22] multivitamin 1 tab PO DAILY 09/14/22 [History Confirmed 09/30/22] vitamin B complex 1 tab PO DAILY 09/14/22 [History Confirmed 09/30/22] esomeprazole magnesium 40 mg capsule,delayed release (Nexium) 40 mg PO DAILY #30 caps 09/25/22 [Rx Confirmed 09/30/22] PFSH Medical History Anxiety COVID-19 Elevated glucose level Essential hypertension Inappropriate sinus tachycardia Mixed hyperlipidemia NSVT (nonsustained ventricular tachycardia) Premature ventricular contraction Surgical History History of cardiac radiofrequency ablation (~11/04/99) History of colonoscopy (~2016) History of left heart catheterization (LHC) (~04/20/08) History of repair of pectoralis muscle tear (~1994) Family History Other CVA (cerebral vascular accident) Colon cancer Diabetes Hypertension Myocardial infarction Social History Smoking Status: Never smoker alcohol intake: current alcohol intake frequency: a few times a week substance use type: does not use caffeine: Yes Type: coffee Number of servings: 1 HPI HPI HPI: 52-year-old gentleman is referred by Dr. Carol Washburn for surgical co nsultation regarding abdominal pain bloating and change in bowel habits intermittent compromise surgical consult recommendations will return to him. By report the patient's had IBS-like symptoms for a long period of time. Complains of bloating. Constipation. Rich fatty food intolerance. It is of note that his father had colon cancer that the patient's had previous colonoscopies. Laboratory as of September 14, 2022 shows a white count of 4.8 with a hemoglobin 13.8 hematocrit 41.4 platelet count 2 of 57,000. BUN is 10 and creatinine 1. Hemoglobin A1c is 6.6. Liver function tests were normal. Cholesterol elevated at 229 and LDL elevated at 148. TSH was normal at 1.24. PSA was normal at 0.73. Previously on May 01, [address] of the abdomen pelvis with contrast. Small umbilical hernia. No acute findings. I have personally reviewed those images. No discrete gallbladder issues at that time. Ongoing thoughts about further gallbladder work-up or EGD have been offered to the patient. The patient complains that ever since he had COVID that he has had this abdominal bloating. Initially had severe constipation just would move his bowels now or to alternate between constipation and diarrhea. He has a HIDA scan and gallbladder ultrasound scheduled for October 192016 he had a colonoscopy by Dr. Tez Schilling because the patient has a family history of colon cancer in his father. The patient used to chew tobacco but he quit 8 years ago. He drinks about a sixpack of beer per week. Has not had any unexpected weight loss. No bright red blood per rectum or me lisy. He is the [facility] Center[facility] speech of [employer] [facility] General General: Yes weight change; No appetite, fatigue, colon cancer, breast cancer or weakness HEENT HEENT: No difficulty swallowing, eye injury, eye surgery, swollen glands or hoarseness Endo Endocrine: No thyroid disease, diabetes mellitus, thyroid cancer, Hair loss, heat intolerance or cold intolerance Skin Skin: No rash or changing moles Breast Breast: No left breast lump, right breast lump, nipple discharge, breast pain, abnormal mammogram, abnormal US or breast enlargement Musc Musculoskeletal: Yes back problems and arthritis; No rheumatoid arthritis, gout or joint pain Cardio Cardiovascular: Yes atrial fibrillation; No murmur, pacemaker, heart disease, high blood pressure, heart attack, heart stent, palpitations, shortness of breat with exertion or chest pain Psych Psychiatric: No depression, anxiety or hearing voices Resp Respiratory: No shortness of breath, No sleep apnea, No cough, No COPD, No asthma, No emphysema and No wheezing Gastro Gastrointestinal: Yes abdominal pain, No nausea or vomiting, Yes diarrhea, Yes constipation, No blood in stool, No acid reflux, No hemorrhoids, No ulcers, No gallbladder problem and No black,tarry stools Walter Hematologic: No blood thinners, No blood disorders, No bleeding, No anemia and No blood clots Neuro Neurologic: No system reviewed and no additional complaints, except as documented, No as per HPI, No abnormal gait, No abnormal hearing, No abnormal movements, No abnormal speech, No behavioral changes, No burning sensations, No confusion, No convulsions, No disequilibrium, No dizziness, No localized weakness, No frequent falls, No headache(s), No lack of coordination, No loss of vision, No memory loss, No numbness, No other visual disturbances, No radicular pain, No restless legs, No sensory deficit, No syncope, No tingling, No tremor(s), No weakness and No other Exam Const General: cooperative, comfortable and no acute distress Nutritional Appearance: average body habitus [facility] Head: normal to inspection Eyes General: appearance normal, both eyes and all related structures Neck Neck: normal visual inspection Chest Chest palpation & inspection: normal inspection of the chest Resp Effort & Inspection: normal respiratory effort Auscultation: clear to auscultation bilaterally Cardio Rate: regular rate Rhythm: regular rhythm GI Inspection: normal to inspection Auscultation: normal bowel sounds Skin General: no rashes or lesions noted Neuro General: patient alert and patient awake Extrem General: no calf tenderness Psych Appearance: grossly normal Assessment and Plan Assessment and Plan (1) Abdominal bloating: Status: Acute (2) Frequent bowel movements: Status: Acute (3) Constipation: Status: Acute Qualifiers: Constipation type: unspecified constipation type Qualified Code(s): K59.00 - Constipation, unspecified Plan: The patient claims that his bowels have not behave correctly ever since he had a severe COVID with lots of GI symptoms associated with it. He has a family history of colon cancer in his father. His last colonoscopy was 2016. I propose for him a esophagogastroduodenoscopy and colonoscopy with possible biopsy or polypectomy as indicated. He is aware of the technique, benefit, risk, alternatives. He makes mention that he does have some bradycardia. He has been able to avoid pacemaker placement. He will be reestablishing with a local rubber stamp assembler now that Dr. Gabrielw his left. He is able to maintain his activities of daily life. He states that he enjoys running because it helps keep his heart rate up. He wonders whether his low heart rate could be contributing to his bowel complaints but he does not have syncopal spells or dyspnea on exertion which I think would likely occur first prior to bowel ischemia. I will consider taking pinch biopsies were needed as appropriate. I appreciate the opportunity of assisting with the surgical care Copy: Dr. Carol John M.D., F.A.C.S. I have examined the patient and the H&P has been reviewed. There are no clinical changes since date of exam. Yaya John M.D., F.A.C.S.
--- NOTE | 2022-11-10 09:30 | IMM_PTH ---
PATIENT: ANDREAS BENSON LOC: [facility] U#:[id number] AGE/SX: 52/M ROOM: RE11/10/[address]: Dr. Yaya John MD : 1970 BED: DIS: 11/10/2022 SPEC #: [id number] RECD: 11/10/22 13:31 STATUS: GENA REJusten #: [id number] ABILIO: 11/10/22 09:[address]: Yaya John DEPT: IMMUNOHISTOCHEMISTRY RECD BY: Erlinda Munoz ENTERED: 11/10/22 13:32 SP TYPE: IMMUNO OTHR DR: Dr. Carol Washburn MD Tissues: B - Stomach, NOS Procedures: H Pylori (initial) PHYSICIAN & INSTITUTION [place] [id number] SPECIMEN INFORMATION: Tissue Source: B - Antrum Clinical Info: Abdominal bloating, frequent bowel movements, constipation Specimen Number: [id number] CPT code: 50954 METHODOLOGY: Deparaffinized sections of prefer/formalin-fixed tissue or PAP/DQ stained slides are incubated with monoclonal/polyclonal antibodies/oligonucleotide probes. Localization is made via biotin free immunoperoxidase method. Appropriate controls are performed and reacted as expected. Results on target cell population are indicated in the following table: RESULTS: ANTIBODY / CLONE RESULT Block B H Pylori (polyclonal) negative These tests were developed and their performance characteristics determined by [facility]. They may not have been cleared or approved by the U.S. Food and Drug Administration. The FDA has determined that such clearance or approval is not necessary. The above immunohistochemical/dualISH markers are ordered and reviewed by the Pathologist. INTERPRETATION: B. Antrum, biopsy: Negative for Helicobacter pylori organisms. AM:seferino 11/11/2022
[2022-11-10 09:34] VITALS: BP 111/71; BP 135/88; PULSE 56; RESP 16; TEMP 36.8; O2SAT 96
--- NOTE | 2022-11-10 09:35 | OP.EGD_ITS ---
Patient Name: Sharif Jeter Procedure Date: 11/10/2022 9:18 AM Date of : 1970 Age: 52 Procedure: Upper GI endoscopy Indications: Abdominal pain Providers: Yaya John MD Referring MD: Carol Washburn Medicines: See the Anesthesia note for documentation of the administered medications Complications: No immediate complications. Procedure: Pre-Anesthesia Assessment: - Prior to the procedure, a History and Physical was performed, and patient medications and allergies were reviewed. The patient's tolerance of previous anesthesia was also reviewed. The risks and benefits of the procedure and the sedation options and risks were discussed with the patient. All questions were answered, and informed consent was obtained. Prior Anticoagulants: The patient has taken no anticoagulant or antiplatelet agents. ASA Grade Assessment: II - A patient with mild systemic disease. After reviewing the risks and benefits, the patient was deemed in satisfactory condition to undergo the procedure. After obtaining informed consent, the endoscope was passed under direct vision. Throughout the procedure, the patient's blood pressure, pulse, and oxygen saturations were monitored continuously. The Colonoscope was introduced through the mouth, and advanced to the second part of duodenum. The upper GI endoscopy was accomplished without difficulty. The patient tolerated the procedure well. Scope In: 9:09:33 AM Scope Out: 9:14:43 AM Total Procedure Duration Time 0 hours 5 minutes 10 seconds Findings: The examined esophagus was normal. Small hiatal hernia noted The Z-line was regular and was found 43 cm from the incisors. Biopsies were taken with a cold forceps for histology. Diffuse mildly erythematous mucosa without bleeding was found in the gastric antrum. Biopsies were taken with a cold forceps for histology. The examined duodenum was normal. Biopsies were taken with a cold forceps for histology. Impression: - Normal esophagus. Small hiatal hernia noted - Z-line regular, 43 cm from the incisors. Biopsied. - Erythematous mucosa in the antrum. Biopsied. - Normal examined duodenum. Biopsied. Recommendation: - Discharge patient to home. - Resume previous diet. - Continue present medications. - Telephone my office for pathology results in 1 week. Findings do not seem to correlate with any significant abdominal issues. Procedure Code(s): --- Professional --- 94111, Esophagogastroduodenoscopy, flexible, transoral; with biopsy, single or multiple Diagnosis Code(s): --- Professional --- K31.89, Other diseases of stomach and duodenum R10.9, Unspecified abdominal pain CPT copyright 2021 [employer]. All rights reserved. The codes documented in this report are preliminary and upon medical records coder review may be revised to meet current compliance requirements. Yaya John MD 11/10/2022 9:35:33 AM This report has been signed electronically. Number of Addenda: 0 Note Initiated On: 11/10/2022 9:18 AM
--- NOTE | 2022-11-10 09:36 | OP.CCLET_ITS ---
11/10/2022 Carol Washburn [facility] [address] [place] [address] Re : Upper GI endoscopy procedure for Sharif Jeter Dear Dr. Washburn This procedure was performed on Thursday, November 10, 2022. My impressions and recommendations are as follows: Impressions : - Normal esophagus. Small hiatal hernia noted - Z-line regular, 43 cm from the incisors. Biopsied. - Erythematous mucosa in the antrum. Biopsied. - Normal examined duodenum. Biopsied. Recommendations : - Discharge patient to home. - Resume previous diet. - Continue present medications. - Telephone my office for pathology results in 1 week. Findings do not seem to correlate with any significant abdominal issues. My findings are described in the full procedure note, which is enclosed. If I can be of further assistance, please feel free to contact me at Doctor phone number(s): Work: . Sincerely, Yaya John MD 11/10/2022 9:35:33 AM This report has been signed electronically.
--- NOTE | 2022-11-10 09:39 | OP.CCLET_ITS ---
11/10/2022 Carol Washburn [facility] [address] [place] [address] Re : Colonoscopy procedure for Sharif [facility] Dear Dr. Washburn This procedure was performed on Thursday, November 10, 2022. My impressions and recommendations are as follows: Impressions : - Non-thrombosed internal hemorrhoids and internal hemorrhoids that prolapse with straining, but spontaneously regress to the resting position (Grade II) found on digital rectal exam. - One 3 mm polyp in the proximal transverse colon, removed with a cold biopsy forceps. Resected and retrieved. - The examined portion of the ileum was normal. Biopsied. - Diverticulosis in the sigmoid colon. - Biopsies were taken with a cold forceps from the entire colon for evaluation of microscopic colitis. Recommendations : - Discharge patient to home. - Resume previous diet. - Continue present medications. - Repeat colonoscopy in 5 years for surveillance based on pathology results. - Telephone my office for pathology results in 1 week. No particular findings that would correlate with abdominal bloating or discomfort. Will await pathology. My findings are described in the full procedure note, which is enclosed. If I can be of further assistance, please feel free to contact me at Doctor phone number(s): Work: . Sincerely, Yaya John MD 11/10/2022 9:39:03 AM This report has been signed electronically.
--- NOTE | 2022-11-10 09:39 | OP.COLON_ITS ---
Patient Name: Sharif Jeter Procedure Date: 11/10/2022 9:15 AM Date of : 1970 Age: 52 Procedure: Colonoscopy Indications: Abdominal pain Providers: Yaya John MD Referring MD: Carol Washburn Medicines: See the Anesthesia note for documentation of the administered medications Patient Profile: Last Colonoscopy: none. The patient's first colonoscopy is today. Complications: No immediate complications. Procedure: Pre-Anesthesia Assessment: - Prior to the procedure, a History and Physical was performed, and patient medications and allergies were reviewed. The patient's tolerance of previous anesthesia was also reviewed. The risks and benefits of the procedure and the sedation options and risks were discussed with the patient. All questions were answered, and informed consent was obtained. Prior Anticoagulants: The patient has taken no anticoagulant or antiplatelet agents. ASA Grade Assessment: II - A patient with mild systemic disease. After reviewing the risks and benefits, the patient was deemed in satisfactory condition to undergo the procedure. After I obtained informed consent, the scope was passed under direct vision. Throughout the procedure, the patient's blood pressure, pulse, and oxygen saturations were monitored continuously. The Colonoscope was introduced through the anus and advanced to the terminal ileum. The colonoscopy was performed without difficulty. The patient tolerated the procedure well. The quality of the bowel preparation was good. The ileocecal valve and the appendiceal orifice were photographed. Scope In: 9:16:47 AM Scope Withdrawal Time 0 hours 9 minutes 34 seconds Scope Out: 9:29:18 AM Total Procedure Duration Time 0 hours 12 minutes 31 seconds Findings: The digital rectal exam findings include non-thrombosed internal hemorrhoids and internal hemorrhoids that prolapse with straining, but spontaneously regress to the resting position (Grade II). Pertinent negatives include normal prostate (size, shape, and consistency). A 3 mm polyp was found in the proximal transverse colon. The polyp was sessile. The polyp was removed with a cold biopsy forceps. Resection and retrieval were complete. The terminal ileum appeared normal. Biopsies were taken with a cold forceps for histology. Biopsies for histology were taken with a cold forceps from the entire colon for evaluation of microscopic colitis. Multiple diverticula were found in the sigmoid colon. Impression: - Non-thrombosed internal hemorrhoids and internal hemorrhoids that prolapse with straining, but spontaneously regress to the resting position (Grade II) found on digital rectal exam. - One 3 mm polyp in the proximal transverse colon, removed with a cold biopsy forceps. Resected and retrieved. - The examined portion of the ileum was normal. Biopsied. - Diverticulosis in the sigmoid colon. - Biopsies were taken with a cold forceps from the entire colon for evaluation of microscopic colitis. Recommendation: - Discharge patient to home. - Resume previous diet. - Continue present medications. - Repeat colonoscopy in 5 years for surveillance based on pathology results. - Telephone my office for pathology results in 1 week. No particular findings that would correlate with abdominal bloating or discomfort. Will await pathology. Procedure Code(s): --- Professional --- 39214, Colonoscopy, flexible; with biopsy, single or multiple Diagnosis Code(s): --- Professional --- K64.1, Second degree hemorrhoids D12.3, Benign neoplasm of transverse colon (hepatic flexure or splenic flexure) R10.9, Unspecified abdominal pain K57.30, Diverticulosis of large intestine without perforation or abscess without bleeding CPT copyright 2021 [employer] [place] [employer]. All rights reserved. The codes documented in this report are preliminary and upon visually impaired teacher review may be revised to meet current compliance requirements. Yaya John MD 11/10/2022 9:39:03 AM This report has been signed electronically. Number of Addenda: 0 Note Initiated On: 11/10/2022 9:15 AM
[2022-11-10 09:40] VITALS: BP 100/65; BP 135/88; PULSE 63; RESP 16; O2SAT 93
[2022-11-10 09:45] VITALS: BP 100/64; BP 135/88; PULSE 56; RESP 16; O2SAT 95
[2022-11-10 09:52] VITALS: BP 102/68; BP 135/88; PULSE 57; RESP 16; TEMP 36.6; O2SAT 93
[2022-11-10 10:10] VITALS: BP 135/88
== END 2022-11-10 10:36 | disposition home or self-care (01) ==
LOC: EN 08:23 → AC 08:25
PROVIDERS: PCP Internal Medicine; Referring Provider Internal Medicine; Visit Provider Surgery
PROC: 0DJD8ZZ Inspection of Lower Intestinal Tract, Via Natural or Artificial Opening Endoscopic (ICD-10-PCS; CPT 45378; principal; 2022-11-10 09:25)
DX: D12.3 Benign neoplasm of transverse colon (principal); K64.1 Second degree hemorrhoids; K29.50 Unspecified chronic gastritis without bleeding; K31.89 Other diseases of stomach and duodenum; K57.30 Diverticulosis of large intestine without perforation or abscess without bleeding; I10 Essential (primary) hypertension; K44.9 Diaphragmatic hernia without obstruction or gangrene; Z80.0 Family history of malignant neoplasm of digestive organs; Z79.82 Long term (current) use of aspirin; Z79.899 Other long term (current) drug therapy; Z86.16 Personal history of COVID-19; Z87.891 Personal history of nicotine dependence
CPT/HCPCS: 43239; 45380; 88305; 88313; 88342; J7120; J2405

== ENCOUNTER → 2023-01-20 | Outpatient (CLI) | payer OTHER, SELFPAY ==
[2023-01-20 12:22] LABS: Absolute Lymphocyte Count 1.25 X10^3/uL (0.83-4.51); Absolute Neutrophil Count 2.7 X10^3/uL (2.0-7.7); Basophil# 0.02 X10^3/uL; Basophil% 0.4 % (0-1); Eosinophil# 0.05 X10^3/uL; Eosinophils% 1.1 % (0-5); Hematocrit 45.2 % (40-54); Lymphocyte # 1.25 X10^3/ul (0.83-4.51); Lymphocyte % 26.4 % (19-41); Mean Corp Hgb Conc 33.2 g/dL (32-36); Mean Corpuscular Hgb 30.3 pg (27.0-32.0); Mean Corpuscular Volume 91.3 fL (80-94); Mean Platelet Vol. 9.1 fl (6.2-12.0); Monocyte# 0.73 X10^3/uL; Monocyte% 15.4 % (0-10); NRBC Flagged by Analyzer 0 % (0-5); Neutrophil # 2.66 X10^3/uL (2.7-7.7); Neutrophil % 56.3 % (47-70); Platelet Count 215 K/mm3 (150-450); RBC Distribution Width CV 12.4 % (11.6-14.6); RBC Distribution Width SD 41.1 fl (35.1-43.9); Red Blood Count 4.95 M/mm3 (4.6-6.2); White Blood Count 4.7 K/mm3 (4.4-11.0)
[2023-01-20 13:04] LABS: ALB/GLOB Ratio 0.9 RATIO (0.9-2.4); AST(SGOT) 61 U/L (15-37); Alanine Aminotransfer ALT/SGPT 100 U/L (16-61); Albumin, Serum 3.8 g/dL (3.2-5.0); Alkaline Phosphatase 72 U/L (45-117); Anion Gap 7 (5-15); BUN 9 mg/dL (7-18); BUN/Creat Ratio 7.6 RATIO (10-20); Calcium,Total 9.1 mg/dL (8.5-10.1); Chloride 99 mmol/L (98-107); Creatinine, Serum 1.19 mg/dL (0.70-1.30); EST Glomerular Filtration Rate 68 mL/min (>60); Est Glom Filt Rate - Afr Amer 82 mL/min (>60); Globulin 4.4 g/dL (2.2-4.2); Glucose 145 mg/dL (74-106); Potassium 4.2 mmol/L (3.5-5.1); Protein, Total 8.2 g/dL (6.4-8.2); Sodium Level 135 mmol/L (136-145)
[2023-01-20 13:36] LABS: Hepatitis C Antibody Non-Reactive (Nonreactive)
[2023-01-21 09:08] LABS: Lyme Scn Total Ab w/Rflx Negative (Negative)
== END | disposition home or self-care (01) ==
LOC: LAB 11:44
PROVIDERS: PCP Internal Medicine; Referring Provider Internal Medicine; Visit Provider Internal Medicine
DX: R50.9 Fever, unspecified (principal); Z20.5 Contact with and (suspected) exposure to viral hepatitis; W57.XXXA Bitten or stung by nonvenomous insect and other nonvenomous arthropods, initial encounter
CPT/HCPCS: 36415; 80053; 85025; 86618; 86803

== ENCOUNTER → 2023-02-16 | Outpatient (CLI) | payer OTHER, SELFPAY ==
[2023-02-16 16:35] LABS: Insulin 25.7 mU/L (2.6-37.6)
[2023-02-16 16:36] LABS: ALB/GLOB Ratio 1.2 RATIO (0.9-2.4); AST(SGOT) 25 U/L (15-37); Alanine Aminotransfer ALT/SGPT 35 U/L (16-61); Alkaline Phosphatase 69 U/L (45-117); Anion Gap 5 (5-15); BUN 12 mg/dL (7-18); BUN/Creat Ratio 10.8 RATIO (10-20); Calcium,Total 8.7 mg/dL (8.5-10.1); Chloride 105 mmol/L (98-107); Creatinine, Serum 1.11 mg/dL (0.70-1.30); EST Glomerular Filtration Rate 74 mL/min (>60); Est Glom Filt Rate - Afr Amer 89 mL/min (>60); Globulin 3.2 g/dL (2.2-4.2); Glucose 170 mg/dL (74-106); Protein, Total 7.2 g/dL (6.4-8.2); Sodium Level 139 mmol/L (136-145)
[2023-02-16 16:40] LABS: Hemoglobin A1c 6.5 % (3.8-5.6)
== END | disposition home or self-care (01) ==
LOC: LAB 15:34
PROVIDERS: PCP Internal Medicine; Referring Provider Internal Medicine; Visit Provider Internal Medicine
DX: R73.09 Other abnormal glucose (principal); R79.89 Other specified abnormal findings of blood chemistry
CPT/HCPCS: 36415; 80053; 83036; 83525

== ENCOUNTER → 2023-06-22 | Outpatient (CLI) | payer OTHER, SELFPAY ==
--- NOTE | 2023-06-22 13:04 | ECHOD_ITS ---
Reason For Study: Palpitations Procedure This was a 2D Doppler, Color Flow transthoracic echocardiogram. Exam performed in department. Left Ventricle Normal LV size. The estimated ejection fraction is 55 %. No evidence for diastolic dysfunction. No regional wall motion abnormalities noted. Right Ventricle Normal RV size. Normal systolic function. Atria Normal left atrium. Normal right atrium. No doppler evidence for ASD. Mitral Valve There is no mitral valve stenosis. No mitral valve insufficiency. Tricuspid Valve There is no tricuspid stenosis. Trivial tricuspid valve insufficiency. Pulmonary artery systolic pressure is 30 mmHg. Aortic Valve Trisinus/trileaflet aortic valve. There is no aortic stenosis. No aortic valve insufficiency. Pulmonic Valve There is no pulmonic valvular stenosis. No pulmonic valve insufficiency. Great Vessels Normal aortic root. Pericardium/Pleural No pericardial effusion. MMode/2D Measurements & Calculations LVIDd: 5.6 cm IVSd: 0.98 cm Ao root diam: 3.1 cm LVIDs: 4.3 cm LVPWd: 1.1 cm LA dimension: 4.0 cm RVDd: 4.3 cm FS: 22.6 % LAV(MOD-bp): 64.2 ml LA A4 area: 21.2 cm2 RA A4 area: 19.3 cm2 LAV(MOD-bp) Indexed: 30.5 ml/m2 LAV(MOD-sp2): 64.8 ml LAV(MOD-sp4): 62.9 ml TAPSE: 2.5 cm Time Measurements MV dec time: 0.23 sec Doppler Measurements & Calculations MV E max mitch: 75.9 cm/sec Lat Peak E' Mitch: 18.7 cm/sec Med Peak E' Mitch: 12.1 cm/sec MV A max mitch: 59.8 cm/sec E/E' lat: 4.1 E/E' med: 6.3 MV E/A: 1.3 MV V2 max: 88.0 cm/sec MV P1/2t max mitch: 88.0 cm/sec Ao V2 max: 137.7 cm/sec MV max P.1 mmHg MV P1/2t: 80.1 msec Ao max P.6 mmHg MV V2 mean: 41.6 cm/sec Ao V2 mean: 94.0 cm/sec MV mean P.88 mmHg MV dec slope: 321.6 cm/sec2 Ao mean P.1 mmHg MV V2 VTI: 30.6 cm MVA(P1/2t): 2.7 cm2 Ao V2 VTI: 31.8 cm AV (velocity ratio): 0.81 LV V1 max: 107.9 cm/sec PA V2 max: 105.7 cm/sec TR max mitch: 253.9 cm/sec LV V1 max P.7 mmHg PA V2 mean: 69.9 cm/sec TR max P.8 mmHg LV V1 mean P.5 mmHg LV V1 mean: 74.1 cm/sec LV V1 VTI: 25.9 cm ECHO/Echo Complete Interpretation Summary The estimated ejection fraction is 55 %. No evidence for diastolic dysfunction. Ordering Physician: Waldo Soto Referring Physician: Waldo Soot Performed By: Anrdey Galaviz RCS
== END | disposition home or self-care (01) ==
LOC: CVS 13:03
PROVIDERS: PCP Internal Medicine; Referring Provider Internal Medicine Cardiovascular Disease; Visit Provider Internal Medicine Cardiovascular Disease
DX: R00.2 Palpitations (principal); R53.83 Other fatigue
CPT/HCPCS: 93306

== ENCOUNTER → 2024-05-16 | Outpatient (CLI) | payer OTHER, SELFPAY ==
[2024-05-16 19:00] LABS: Hemoglobin A1c 7.1 % (<=5.6)
[2024-05-16 19:08] LABS: Cholesterol 254 mg/dL (<=200); High Density Lipoprotein 47 mg/dL; Low Density Lipoprotein Calc. 166 mg/dL; Triglycerides 203 mg/dL; Very Low Density Lipoprotein 41 mg/dL (5-40); cholesterol:hdl ratio screen 5.38
[2024-05-16 19:19] LABS: ALB/GLOB Ratio 1.7 RATIO (0.9-2.4); AST(SGOT) 32 U/L (<=37); Alanine Aminotransfer ALT/SGPT 38 U/L (<=46); Albumin, Serum 4.6 g/dL (3.5-5.0); Alkaline Phosphatase 59 U/L (40-129); Anion Gap 11 (5-15); BUN 13 mg/dL (4-19); Carbon Dioxide 23.8 mmol/L (21.0-32.0); Chloride 104 mmol/L (98-108); EST Glomerular Filtration Rate 80 (>60); Globulin 2.8 g/dL (2.2-4.2); Glucose 105 mg/dL (70-99); Potassium 4.3 mmol/L (3.3-5.1); Protein, Total 7.4 g/dL (5.9-8.4); Sodium Level 138 mmol/L (133-145); Total Bilirubin 0.28 mg/dL (0.00-1.30)
[2024-05-18 03:07] LABS: Insulin Level 7.3 uIU/mL (2.6-24.9)
== END | disposition home or self-care (01) ==
LOC: LAB 16:54
PROVIDERS: PCP Internal Medicine; Referring Provider Internal Medicine; Visit Provider Internal Medicine
DX: R73.09 Other abnormal glucose (principal); I10 Essential (primary) hypertension; K76.0 Fatty (change of) liver, not elsewhere classified; Z13.220 Encounter for screening for lipoid disorders
CPT/HCPCS: 36415; 80053; 80061; 83036; 83525

== ENCOUNTER 2024-11-26 18:18 | Emergency (ER) | payer OTHER, SELFPAY ==
--- OUTSIDE RECORDS SUMMARY | 2024-11-24 15:44 | XMS RPT_ITS ---
Author Name Auto Generated Organization [facility] Care Team Providers Care Search Engine Marketing Manager Name Role Phone EDIS STAPLES Primary Care Unavailable SNEHA HERNANDEZ Attending Unavailable PROBLEMS DATE TYPE CONDITION / CODE ATTENDING STATUS SHANNON RCE 11/24/2024 Active Rash / R21(ICD-10) SNEHA HERNANDEZ Active [facility] PROCEDURES No Procedure Records Found RESULTS PROGRESS Observed: 11/24/2024 4:22 PM Status: COMPLETED Source: [facility] HNO ID: [id number] Author: SNEHA HERNANDEZ APRN.PLANT HEALTH CARE TECHNICIAN Service: ? Author Type: Nurse Practitioner Type: Progress Notes Filed: 11/24/2024 16:30 Note Text: Subjective Sharif Benson is a 54 year old male. The history is provided by the patient. No animal cytologist was used. HPI Sharif Benson is a 54 year old male who presents today for CC of two diffferent rashes and symptoms. Two weeks ago patient developed an itchy rash after working in the [employer]. He has used teatree oil with slight relief. In the past 24 hours he noted neck pain, throat pain, felt like throat was swelling with blistered rash in mouth, as well as developing rash on hands - lesion that are new and blistered. States he also had body aches. He has not used any treatment or medications. SOCIAL HISTORY[1] PAST MEDICAL HISTORY Diagnosis Date Constipation Diarrhea Family history of malignant neoplasm of gastrointestinal tract Heart palpitations S/P sinus node modification in 1999 HTN (hypertension) I have confirmed and edited as necessary, the [facility] Review of Systems Constitutional: Negative for fatigue and fever. HENT: Positive for sore throat (blistered lesions in mouth and throat). Negative for congestion, ear pain, rhinorrhea, sinus pressure and sinus pain. Eyes: Negative for discharge. Respiratory: Negative for cough, shortness of breath and wheezing. Gastrointestinal: Negative for abdominal pain, diarrhea, nausea and vomiting. Musculoskeletal: Positive for myalgias and neck pain. Negative for arthralgias. Skin: Positive for rash. Negative for color change. Neurological: Negative for headaches. Psychiatric/Behavioral: Negative for confusion. Objective BP 167/98 Pulse 78 Temp 37.1 ?C (98.8 ?F) Resp 18 Wt 93.3 kg (205 lb 11 oz) SpO2 96% BMI 29.51 kg/m? Physical Exam Constitutional: General: He is not in acute distress. HENT: Head: Normocephalic and atraumatic. Eyes: Conjunctiva/sclera: Conjunctivae normal. Pupils: Pupils are equal, round, and reactive to light. Pulmonary: Effort: Pulmonary effort is normal. Musculoskeletal: Cervical back: Normal range of motion and neck supple. Skin: General: Skin is warm and dry. Comments: On torso - Skin:linear streaks of erythematous papules with/without pruritic small vesicles - for two weeks. On palms of left and right hands he has 3 new papules, vesicular in appearance Neurological: Mental Status: He is alert and oriented to person, place, and time. ASSESSMENT/PLAN: 1. Rash - ICD9: 782.1, ICD10: R21 Appears to be two different rashes Contact Dermatitis and Hand Foot and Mouth Prednisone taper for contact dermatitis Triamcinolone cream topically for itching Comfort measures discussed for hand foot and mouth, see patient instructions Monitor symptoms, any worsening to ED for further evaluation and treatment. Diagnosis and treatment plan were discussed and questions were answered to the patient's satisfaction. Pt acknowledged understanding of concepts and follow up plan. Specific signs and symptoms that would indicate the need for higher level of care were discussed in detail warranting prompt ER evaluation. Sneha Hernandez, NASCAR DRIVER.PLANT HEALTH CARE TECHNICIAN [1] Social History Tobacco Use Smoking status: Never Substance Use Topics Alcohol use: Yes Alcohol/week: 1.0 standard drink of alcohol Types: 1 Cans of Beer (12oz) per week Drug use: No CNOV Observed: 11/24/2024 3:45 PM Status: COMPLETED Source: [facility] Office Visit ([facility]) SHARIF BENSON ([id number]) 1970 M Date Time Provider Department 11/24/24 3:45 PM DAVIDSNEHA Blackwood TY During your visit today, we recorded the following information about you: Temperature Pulse Respiration Blood pressure 98.8 degrees 78/minute 18/minute 167/98 Weight 93.3 kg DavidSneha blackwoodANDRÉS.PLANT HEALTH CARE TECHNICIAN 11/24/2024 4:22 PM Signed Appear to have two different rashes. Contact dermatitis - prednisone taper as ordered, and triamcinolone cream as needed for itching. Hand, Foot and Mouth Disease What is hand, foot, and mouth disease? Hand, foot, and mouth disease is a mild, infectious childhood illness caused by a number of different viruses. Most often, the illness is caused by a strain of the Coxsackie virus. This illness gets its name from the blister-like rash that usually forms on the hands, feet, and mouth. Who gets hand, foot, and mouth disease? Hand, foot and mouth disease is very common and usually affects infants and children under the age of 10. Because hand, foot, and mouth disease is infectious, it can sometimes make adolescents and adults sick, too. What are the symptoms of hand, foot, and mouth disease? The initial symptoms of hand, foot and mouth disease include fever, lack of appetite, sore throat and runny nose. A day or two after the initial symptoms appear, a blister-like rash forms on the hands, feet or mouth. How is hand, foot, and mouth disease spread? Hand, foot and mouth disease is spread through direct contact with nose and throat discharges of the infected person. It can also be spread through contact with the stool of the infected person. How long is a person with hand, foot, and mouth disease contagious? While a person with this illness is most contagious during the first week, he or she may remain contagious until the blister-like rash has disappeared. How is hand, foot, and mouth disease treated? There is no specific treatment for hand, foot and mouth disease. However, the symptoms of this illness, including fever, aches and mouth sore pain, can be treated. Can hand, foot, and mouth disease be prevented? There are a number of things you can do to prevent or reduce the spread of hand, foot and mouth disease. They include: Washing your hands often, especially after changing diapers Disinfecting any contaminated surfaces with a water and bleach Washing your child's clothing, bedding and any other soiled items Keeping your child home from daycare, school or any other group activity for the first few days of the illness Is hand, foot, and mouth disease the same as tvxq-kit-icodr disease? Hand, foot and mouth disease is a completely different condition than plyn-uwq-ekorc disease. Lxfq-pgk-olbkx disease is an illness that affects cattle, sheep and swine. The two diseases are not related and are caused by different viruses. ? Copyright 8162-9163 [facility]. All rights reserved Sneha Hernandez APRN.PLANT HEALTH CARE TECHNICIAN 11/24/2024 4:30 PM Signed Subjective Sharif Benson is a 54 year old male. The history is provided by the patient. No animal cytologist was used. HPI Sharif Benson is a 54 year old male who presents today for CC of two diffferent rashes and symptoms. Two weeks ago patient developed an itchy rash after working in the [employer]. He has used teatree oil with slight relief. In the past 24 hours he noted neck pain, throat pain, felt like throat was swelling with blistered rash in mouth, as well as developing rash on hands - lesion that are new and blistered. States he also had body aches. He has not used any treatment or medications. SOCIAL HISTORY[1] PAST MEDICAL HISTORY Diagnosis Date Constipation Diarrhea Family history of malignant neoplasm of gastrointestinal tract Heart palpitations S/P sinus node modification in 1999 HTN (hypertension) I have confirmed and edited as necessary, the [facility] Review of Systems Constitutional: Negative for fatigue and fever. HENT: Positive for sore throat (blistered lesions in mouth and throat). Negative for congestion, ear pain, rhinorrhea, sinus pressure and sinus pain. Eyes: Negative for discharge. Respiratory: Negative for cough, shortness of breath and wheezing. Gastrointestinal: Negative for abdominal pain, diarrhea, nausea and vomiting. Musculoskeletal: Positive for myalgias and neck pain. Negative for arthralgias. Skin: Positive for rash. Negative for color change. Neurological: Negative for headaches. Psychiatric/Behavioral: Negative for confusion. Objective BP 167/98 Pulse 78 Temp 37.1 ?C (98.8 ?F) Resp 18 Wt 93.3 kg (205 lb 11 oz) SpO2 96% BMI 29.51 kg/m? Physical Exam Constitutional: General: He is not in acute distress. HENT: Head: Normocephalic and atraumatic. Eyes: Conjunctiva/sclera: Conjunctivae normal. Pupils: Pupils are equal, round, and reactive to light. Pulmonary: Effort: Pulmonary effort is normal. Musculoskeletal: Cervical back: Normal range of motion and neck supple. Skin: General: Skin is warm and dry. Comments: On torso - Skin:linear streaks of erythematous papules with/without pruritic small vesicles - for two weeks. On palms of left and right hands he has 3 new papules, vesicular in appearance Neurological: Mental Status: He is alert and oriented to person, place, and time. ASSESSMENT/PLAN: 1. Rash - ICD9: 782.1, ICD10: R21 Appears to be two different rashes Contact Dermatitis and Hand Foot and Mouth Prednisone taper for contact dermatitis Triamcinolone cream topically for itching Comfort measures discussed for hand foot and mouth, see patient instructions Monitor symptoms, any worsening to ED for further evaluation and treatment. Diagnosis and treatment plan were discussed and questions were answered to the patient's satisfaction. Pt acknowledged understanding of concepts and follow up plan. Specific signs and symptoms that would indicate the need for higher level of care were discussed in detail warranting prompt ER evaluation. Sneha Hernandez APRN.PLANT HEALTH CARE TECHNICIAN [1] Social History Tobacco Use Smoking status: Never Substance Use Topics Alcohol use: Yes Alcohol/week: 1.0 standard drink of alcohol Types: 1 Cans of Beer (12oz) per week Drug use: No Allergies As of Date: 11/24/2024 (No Known Allergies) Date Reviewed: 11/24/2024 Reviewed by: Adilene Gardner MA - Fully Assessed Reason for Visit: Rash [1087] Cmt: Widespread, L hand and sores in mouth, tightness in throat, stiff neck Primary Visit Diagnosis:Rash [R21] Order(s):predniSONE (DELTASONE) 10 mg tabletTake 4 tablets by mouth once daily for 3 days, THEN 3 tablets once daily for 3 days, THEN 2 tablets once daily for 3 days, THEN 1 tablet once daily for 3 days.Disp: 30 tabletRfl: 0 triamcinolone acetonide (KENALOG) 0.1 % creamApply to affected area two times a day.Disp: 30 gRfl: 0 Prescriptions as of 11/24/2024 - sertraline (ZOLOFT) 25 mg tablet Take 1 tablet by mouth once daily. - metoprolol succinate ER (TOPROL XL) 25 mg 24 hr tablet TAKE 1/2 (ONE-HALF) TABLET BY MOUTH ONCE DAILY NEEDED FOR PALPITATIONS - predniSONE (DELTASONE) 10 mg tablet Take 4 tablets by mouth once daily for 3 days, THEN 3 tablets once daily for 3 days, THEN 2 tablets once daily for 3 days, THEN 1 tablet once daily for 3 days. - triamcinolone acetonide (KENALOG) 0.1 % cream Apply to affected area two times a day. - lisinopril (ZESTRIL, PRINIVIL) 10 mg tablet TAKE ONE TABLET BY MOUTH ONCE DAILY - sertraline (ZOLOFT) 50 mg tablet Take 1 tablet by mouth once daily. - albuterol HFA (PROAIR HFA) 90 mcg/actuation inhaler Inhale 1 Puff as instructed every 6 hours as needed for Wheezing/Shortness of Breath. - hydrocortisone (HYTONE) 2.5 % lotion Apply selectively to seborrheic dermatitis (or psoriasis) rash on central face or at ears once to twice per day as needed (qday to bid prn) until clear; AVOID eyes/eyelids. - Aspirin 81 mg Tab Take 1 tablet by mouth once daily. take with food. 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 Contact dermatitis - prednisone taper as ordered, and triamcinolone cream as needed for itching. Hand, Foot and Mouth Disease What is hand, foot, and mouth disease? Hand, foot, and mouth disease is a mild, infectious childhood illness caused by a number of different viruses. Most often, the illness is caused by a strain of the Coxsackie virus. This illness gets its name from the blister-like rash that usually forms on the hands, feet, and mouth. Who gets hand, foot, and mouth disease? Hand, foot and mouth disease is very common and usually affects infants and children under the age of 10. Because hand, foot, and mouth disease is infectious, it can sometimes make adolescents and adults sick, too. What are the symptoms of hand, foot, and mouth disease? The initial symptoms of hand, foot and mouth disease include fever, lack of appetite, sore throat and runny nose. A day or two after the initial symptoms appear, a blister-like rash forms on the hands, feet or mouth. How is hand, foot, and mouth disease spread? Hand, foot and mouth disease is spread through direct contact with nose and throat discharges of the infected person. It can also be spread through contact with the stool of the infected person. How long is a person with hand, foot, and mouth disease contagious? While a person with this illness is most contagious during the first week, he or she may remain contagious until the blister-like rash has disappeared. How is hand, foot, and mouth disease treated? There is no specific treatment for hand, foot and mouth disease. However, the symptoms of this illness, including fever, aches and mouth sore pain, can be treated. Can hand, foot, and mouth disease be prevented? There are a number of things you can do to prevent or reduce the spread of hand, foot and mouth disease. They include: Washing your hands often, especially after changing diapers Disinfecting any contaminated surfaces with a water and bleach Washing your child's clothing, bedding and any other soiled items Keeping your child home from daycare, school or any other group activity for the first few days of the illness Is hand, foot, and mouth disease the same as byyb-fgk-hsuzw disease? Hand, foot and mouth disease is a completely different condition than slvq-rri-bwgnr disease. Tswp-iho-fjyft disease is an illness that affects cattle, sheep and swine. The two diseases are not related and are caused by different viruses. ? Copyright 9357-2600 [facility]. All rights reserved Prescriptions ordered this encounter Disp Refills Start End PREDNISONE 10 MG TABLET 30 t* 0 11/24/2024 12/06/2024 Route: PO Sig: Take 4 tablets by mouth once daily for 3 days, THEN 3 tablets once daily for 3 days, THEN 2 tablets once daily for 3 days, THEN 1 tablet once daily for 3 days. TRIAMCINOLONE ACETONIDE 0.1 % TOPICA* 30 g 0 11/24/2024 Route: TOP Sig: Apply to affected area two times a day. Encounter Status:Closed by SNEHA HERNANDEZ on 11/24/24 ALLERGIES DATE TYPE / CODE NAME / CODE REACTION SEVERITY SOURCE Drug Class/[id number](SNO MED CT) NO KNOWN ALLERGIES [facility] ENCOUNTERS ADMIT/DISCHARGE ACCOUNT NUMBER ADMITTING ENCOUNTER CLASS LOC ATION SOURCE 11/24/2024/ [id number] [facility] ing[facility] PAYERS ENCOUNTER GUARANTOR PAYER SUBSCRIBER SOURCE 11/24/2024 Primary Insurance:[employer] PPOPolicy Number: [id number] e Date:[id number] Name:Ruddy JOHNS GERI: [id number] [place] [id number] [place] [address]
[2024-11-26 18:19] VITALS: BP 144/94; PULSE 87; RESP 16; TEMP 36; O2SAT 100; BMI 28.8
--- NOTE | 2024-11-26 18:45 | EX.ED.DYSGE1 ---
HPI History of Present Illness Chief Complaint: Rash Informant: patient and parent Onset/Context/Timing Onset: Days Context: Gradual Onset Timing: Continuous Current Severity: Moderate Maximum Severity: Moderate Narrative Narrative: 34-year-old male past medical history of Lyme disease in June. Was treated doxycycline at that time. Prior cardiac ablation. Only medication he is on is metoprolol. States on Wednesday he developed a painful rash started on his left upper extremity. Then was in both armpits. In his mouth. Seen in urgent care on Wednesday was told was [id number]-sycv-bni-mouth was started on prednisone tapering dose which she is only taking for 2 days and stopped because he said he cannot sleep and taken the prednisone. Said the rash has gotten worse. He says it itches. Denies any fever or chills. Prior similar symptoms: No Recent Illness/Hospitalization: No PFSH PFSH Medical History Fatty liver Annual wellness visit Elevated LFTs Fever Exposure to hepatitis C Tick bite Wears glasses Arthritis High cholesterol Chewing tobacco nicotine dependence in remission History of Holter monitoring History of echocardiogram History of stress test Cardiology follow-up encounter History of irregular heartbeat Constipation Abdominal bloating Frequent bowel movements Fatigue Essential hypertension Elevated hemoglobin A1c Mixed hyperlipidemia Anxiety Premature ventricular contraction Inappropriate sinus tachycardia NSVT (nonsustained ventricular tachycardia) Elevated glucose level Abdominal fullness in right lower quadrant Right lower quadrant abdominal pain History of recent pneumonia Palpitations COVID-19 Home Medications Medication Instructions Recorded Last Taken Type multivitamin 1 tab PO QDAY 05/17/24 Unknown History vitamin B12 0.5 mg-folic acid 1 mg 1 tab PO QDAY 05/17/24 Unknown History tablet dulaglutide 0.75 mg/0.5 mL 0.75 mg (0.5 mL) subcut QWEEK #2 mL 05/18/24 Unknown Rx subcutaneous pen injector (Trulicity) apple cider vinegar 300 mg tablet mg PO DAILY 07/19/24 Unknown History chromium PO DAILY 07/19/24 Unknown History gymnema PO DAILY 07/19/24 Unknown History metoprolol succinate 25 mg 12.5 mg (1/2 x 25 mg) PO DAILY PRN 11/21/24 Unknown Rx tablet,extended release 24 hr palpitatons #45 tabs sertraline 25 mg tablet 25 mg PO DAILY #90 tabs 11/21/24 Unknown Rx prednisone 10 mg tablet PO 11/26/24 Unknown History triamcinolone acetonide 0.1 % 1 applic topical TID 11/26/24 Unknown History topical cream Allergy/AdvReac Type Severity Reaction Status Date / Time Utgpxip-SEV-DtD Reductase AdvReac Unknown Intolerent Verified 07/19/24 14:18 Inhibitor Family History Other CVA (cerebral vascular accident) Colon cancer Diabetes Hypertension Myocardial infarction Surgical History History of colonoscopy (~2016) History of repair of pectoralis muscle tear (~1994) History of left heart catheterization (LHC) (~04/20/08) History of cardiac radiofrequency ablation (~11/04/99) Social History Smoking Status: Never smoker alcohol intake: never substance use type: does not use caffeine: Yes Type: coffee Number of servings: 1 ROS ROS ED ROS Narrative Rash. Itches. Painful. Constitutional Constitutional ED: Denies chills or fever(s) Eyes Eyes: Denies blurry vision ENT ENT ED: Denies ear pain Cardiovascular Cardiovascular: Denies chest pain Respiratory/Chest Respiratory/Chest: Denies cough or dyspnea Gastrointestinal Gastrointestinal: Denies abdominal pain Genitourinary Genitourinary ED: Denies dysuria Musculoskeletal Musculoskeletal: Denies arthralgias or back pain Integumentary Reports rash; Denies abscess or Abrasions Neurologic Neurologic: Denies headache(s) Psychiatric Psychiatric: Denies anxiety or depression Endocrine Endocrinology: Denies cold intolerance Hematologic/Lymphatic Hematologic/Lymphatic: Reports none Allergic/Immunologic Allergic/Immunologic ED: Denies mouth swelling, tongue swelling or urticaria EXAM Physical Exam Narrative Exam Narrative: Well-appearing 54-year-old male. Vital signs stable afebrile. No acute distress. Accompanied by his mom. H EENT exam pupils round react to light. Moist mutes membranes. He does have lesions on both inside of his cheeks and lower inside of his lip. May or may not be consistent with nobc-gobt-mee-mouth. Posterior pharynx erythematous. But no trouble swallowing or breathing. No stridor or drooling. Neck nontender no lymphadenopathy. No meningismus. Able to chin to chest. Back nontender no significant rash. Lungs clear. Heart regular rhythm no murmur rate about 90. Chest wall and ribs unremarkable other than both axilla areas and along his lateral rib cage on both sides there is no rash. It is red.'s raise is fascicular. There is no pustules. No drainage or discharge. No sloughing of skin. Abdomen soft nontender. Moving all 4 EXTR extremities. Similar rash on his forearms palmar aspect. Lower extremities are pretty much spared. Neurologically is awake alert. Answer questions following commands. Const Vital Signs: 11/26/24 18:19 Temperature 96.8 F L Temperature Source Temporal Pulse Rate 87 Respiratory Rate 16 Blood Pressure 144/94 H Blood Pressure Mean 110 Pulse Ox 100 Oxygen Delivery Method Room Air Positive well nourished and well developed; Negative for cachectic, contractures or unkempt General Appearance ED: well developed and NAD; Negative for unkempt, cachectic, contractures, cyanotic, diaphoretic or pallor Nutritional Appearance: Negative for cachectic HEENT Reports moist mucous membranes HEENT Narrative: Lesions in his mouth on both sides of his inner cheeks and lower lip. Eyes PERRL and EOMs intact bilaterally General Eye ED: Negative for pale conjunctiva or scleral icterus Neck no lymphadenopathy, supple and no JVD General: Negative for tenderness Chest Wall inspection of chest normal and palpation of chest normal Resp normal respiratory effort and clear to auscultation bilaterally Cardio regular rate, regular rhythm, S1 normal heart sound, S2 normal heart sound and no murmurs GI normal to inspection, nondistended, normoactive bowel sounds, non-tender, non-distended and no masses Auscultation: normoactive bowel sounds Palpation: soft; Negative for tender or guarding Back/Spine no CVA tenderness General Back: Negative for CVA tenderness Cervical Spine: Negative for cervical spine tenderness Thoracic Spine / Upper Back: Negative for thoracic spinal tenderness or paraspinal muscle tenderness Lumbar Spine / Lower Back: Negative for lumbar spinal tenderness Extremity normal to inspection Extremity Narrative: Rash upper extremities forearms and axilla. General Extremety ED: Yes other findings; Negative for edema or tenderness General Extremity: other findings; Negative for edema Neuro oriented x3, CN's II-XII intact bilaterally and no sensory deficits noted Sensorium / Orientation: alert; Negative for orientation impaired, lethargic or stuporous Motor Exam: strength 5/5 throughout Psych mental status grossly normal Appearance: Negative for unkempt Skin No no rashes or lesions noted, no wounds and skin turgor normal Skin Narrative: Red raised rash with vesicles primarily in both axilla and around the lateral rib cage bilaterally. Both palmar forearms. And inside his mouth inside both cheeks and lower lip. No pustules. No sloughing of skin. General Skin Exam: elasticity normal; Negative for jaundice or pallor Rashes: rashes noted MDM MDM MDM Narrative Medical decision making narrative: 54-year-old male rash upper extremities feet and mouth consistently foot and mouth. Clinically looks well. He is already been placed on steroids by the urgent care. Be sure to follow-up with leather coater if not improving.He does not need any further testing. History & Record Review Discussion w/independent historian: Patient and Family Additional record(s) reviewed:: Prior inpatient record, Prior outpatient record, Prior ED visit and Prior labs Discharge Plan Triage Chief Complaint: Rash ED Provider: Fermin Beck Dx/Rx/DC Orders Clinical Impression: Rash, Hand, foot and mouth disease (HFMD) Instructions: Hand Foot Mouth Disease Prescriptions: No Action multivitamin Tablet 1 tab PO QDAY vitamin K18-[id number] acid 0.5-1 mg tablet 1 tab PO QDAY apple cider vinegar 300 mg tablet PO DAILY chromium PO DAILY gymnema PO DAILY prednisone 10 mg tablet PO triamcinolone acetonide 0.1 % cream 1 applic topical TID Trulicity 0.75 mg/0.5 mL pen injector 0.75 mg subcut QWEEK Qty: 2 1RF sertraline 25 mg tablet 25 mg PO DAILY Qty: 90 1RF metoprolol succinate 25 mg tablet extended release 24 hr 12.5 mg PO DAILY PRN (Reason: palpitatons) Qty: 45 3RF Primary Care Provider: Carol Washburn Referrals: Cinthia Worthington MD [Non-Staff, Dermatology] - 1-2 Days if not improving Carol Washburn MD [Primary Care Provider, Internal Medicine - [facility]] Activity Restrictions/Additional Instructions: Your prednisone prescription 40 mg a day for the next 7 days. Or you can use your topical steroid cream. Follow-up with a leather coater not improving. This appears to be [id number]-mouth. May take 1-2 more weeks to resolve or get a lot better. Print Language: Greenlandic Disposition Disposition: Home, Self Care
[2024-11-26 19:28] VITALS: BP 144/94; PULSE 87; RESP 16; TEMP 36; O2SAT 100
== END 2024-11-26 19:29 | disposition home or self-care (01) ==
PROVIDERS: Emergency Provider Emergency Medicine; PCP Internal Medicine; Visit Provider Emergency Medicine
DX: B08.4 Enteroviral vesicular stomatitis with exanthem (principal); I10 Essential (primary) hypertension; F41.9 Anxiety disorder, unspecified; Z86.19 Personal history of other infectious and parasitic diseases; Z79.899 Other long term (current) drug therapy
CPT/HCPCS: 99282

== ENCOUNTER → 2025-01-11 | Outpatient (CLI) | payer OTHER, SELFPAY ==
[2025-01-11 16:55] LABS: Hematocrit 40.4 % (40-54); Hemoglobin 13.3 g/dL (13.0-16.5); Immature Granulocytes Count 0.020 X10^3/uL (0.0-0.0); Mean Corp Hgb Conc 32.9 g/dL (32-36); Mean Corpuscular Volume 90.8 fL (80-94); Mean Platelet Vol. 8.6 fl (6.2-12.0); NRBC Flagged by Analyzer 0 % (0-5); Platelet Count 341 K/mm3 (150-450); RBC Distribution Width CV 12.8 % (11.6-14.6); RBC Distribution Width SD 42.5 fl (35.1-43.9); Red Blood Count 4.45 M/mm3 (4.6-6.2); White Blood Count 7.3 K/mm3 (4.4-11.0)
[2025-01-11 17:37] LABS: AST(SGOT) 18 U/L (<=37); Alanine Aminotransfer ALT/SGPT 13 U/L (<=46); Albumin, Serum 4.4 g/dL (3.5-5.0); Alkaline Phosphatase 78 U/L (40-129); Anion Gap 11 (5-15); BUN 18 mg/dL (4-19); BUN/Creat Ratio 18.1 RATIO (10-20); Calcium,Total 10.0 mg/dL (7.6-11.0); Carbon Dioxide 26.4 mmol/L (21.0-32.0); Chloride 102 mmol/L (98-108); Globulin 3.2 g/dL (2.2-4.2); Glucose 161 mg/dL (70-99); PSA,Total - Annual Screen 0.66 ng/mL (0.02-4.00); Potassium 4.2 mmol/L (3.3-5.1)
== END | disposition home or self-care (01) ==
LOC: LAB 16:23
PROVIDERS: PCP Internal Medicine; Referring Provider Internal Medicine; Visit Provider Internal Medicine
DX: E11.65 Type 2 diabetes mellitus with hyperglycemia (principal); A69.20 Lyme disease, unspecified; I10 Essential (primary) hypertension; Z12.5 Encounter for screening for malignant neoplasm of prostate
CPT/HCPCS: 36415; 80053; 83036; 83525; 84153; 84443; 85025; G0103